=== PATIENT | male | born 1960 | race Caucasian/White ===

== ENCOUNTER 2023-05-05 07:57 | Emergency (ER) | payer OTHER, SELFPAY ==
[2023-05-05] VITALS (7 sets, daily range): BP systolic 147–178; BP diastolic 82–101; PULSE 93–108; RESP 18–25; TEMP 36.4; O2SAT 94–99; BMI 30.1
--- NOTE | 2023-05-05 08:36 | RAD_ITS ---
HISTORY: SOB. TECHNIQUE: XR Chest 1 View. COMPARISON: None. FINDINGS: CARDIOMEDIASTINAL BORDERS: Cardiac silhouette within normal limits in size. Mediastinal contour unremarkable. LUNGS: Radiographically clear. PLEURA: No pleural effusion or pneumothorax seen. OSSEOUS STRUCTURES: Unremarkable. RAD/Chest 1 View (Portable) IMPRESSION: No acute cardiopulmonary process identified. Electronically Signed: Charlotte Pack MD at 8:45 EDT ,
--- NOTE | 2023-05-05 09:00 | EKG12_ITS ---
Test Reason : sob Blood Pressure : / mmHG Vent. Rate : 098 BPM Atrial Rate : 098 BPM P-R Int : 152 ms QRS Dur : 074 ms QT Int : 340 ms P-R-T Axes : 069 074 033 degrees QTc Int : 434 ms Normal sinus rhythm Normal ECG Confirmed by MARIUSZ AVENDANO, BILL ([id number]), fashion editor STAR HIGGINS ([id number]) on 05/09/2023 8:03:19 AM Referred By: Confirmed By:BILL VEE MD
--- NOTE | 2023-05-05 09:01 | EDS_ITS ---
HPI History of Present Illness Chief Complaint: Shortness of Breath Narrative Narrative: 63-year-old male presenting with shortness of breath. He states he has been wheezing. He was already seen by his PCP and had a chest x-ray performed several days ago. He has not had any fever or chills. His primary care physician gave him an albuterol inhaler, Tessalon Perles. He states he still having difficulty breathing. He describes dyspnea with exertion and at rest. He states is worse with exertion. He describes orthopnea and states has not been able to sleep at night. Has been send in a chair. States his chest feels tight like somebody is hugging him tightly. Goes all the way around the chest. He feels dizzy and lightheaded when he starts to ambulate. He has not fallen. PFSH PFS Home Medications prednisone 50 mg tablet 50 mg PO DAILY #5 tabs 05/05/23 [Rx Last Taken Unknown] Allergy/AdvReac Type Severity Reaction Status Date / Time No Known Allergies Allergy Verified 05/05/23 08:00 Social History Smoking Status: Never smoker ROS ROS ED Constitutional Constitutional ED: Denies chills, fever(s) or sweats Eyes Eyes: Denies blurry vision or change in vision ENT ENT ED: Denies ear pain or sore throat Cardiovascular Cardiovascular: Reports chest pain and orthopnea; Denies palpitations or racing heartbeat Respiratory/Chest Respiratory/Chest: Reports cough, dyspnea, dyspnea on exertion and orthopnea; Denies sputum Gastrointestinal Gastrointestinal: Denies abdominal pain, constipation, diarrhea, nausea or vomiting Genitourinary Genitourinary ED: Denies dysuria, hematuria or urinary frequency Musculoskeletal Musculoskeletal: Denies arthralgias, myalgias or neck pain Integumentary Denies abscess, Abrasions or rash Neurologic Neurologic: Denies headache(s), paresthesias or weakness Psychiatric Psychiatric: Denies anxiety, depression, suicidal ideation or suicidal thoughts Endocrine Endocrinology: Denies polydipsia or polyuria EXAM Physical Exam Const Vital Signs: 05/05/23 07:58 05/05/23 08:33 05/05/23 09:20 Temperature 97.6 F L Temperature Source Temporal Pulse Rate 95 93 Respiratory Rate 20 H 18 Respiratory Effort Normal Non-Labored Respiratory Depth Normal Respiratory Pattern Normal Normal Blood Pressure 178/101 H Blood Pressure Mean 126 Pulse Ox 99 Oxygen Delivery Method Room Air Room Air 05/05/23 09:00 05/05/23 08:58 05/05/23 09:58 Temperature Temperature Source Pulse Rate Respiratory Rate 18 18 Respiratory Effort Respiratory Depth Respiratory Pattern Blood Pressure Blood Pressure Mean Pulse Ox Oxygen Delivery Method Room Air 05/05/23 10:58 05/05/23 11:58 05/05/23 12:24 Temperature Temperature Source Pulse Rate 106 H 108 H Respiratory Rate 18 25 H 18 Respiratory Effort Respiratory Depth Respiratory Pattern Blood Pressure 147/82 H 147/82 H Blood Pressure Mean 103 103 Pulse Ox 96 94 Oxygen Delivery Method Room Air General Appearance ED: Negative for pallor HEENT Reports normocephalic and head/scalp atraumatic Eyes PERRL and EOMs intact bilaterally Neck no lymphadenopathy and supple Chest Wall inspection of chest normal and palpation of chest normal Resp normal respiratory effort Auscultation: wheezes expiratory wheezes; Negative for rales or rhonchi Cardio regular rate and regular rhythm GI normal to inspection, nondistended, normoactive bowel sounds Narrative: Deferred Extremity normal to inspection General Extremety ED: Negative for edema or tenderness General Extremity: Negative for edema Neuro oriented x3 and CN's II-XII intact bilaterally Sensorium / Orientation: alert Motor Exam: strength 5/5 throughout Psych mental status grossly normal Attitude: No agitated Skin no rashes or lesions noted and no wounds General Skin Exam: Negative for jaundice or pallor MDM MDM MDM Narrative Medical decision making narrative: Presenting with shortness of breath. Differential includes pneumonia, viral syndrome, colitis, CHF, ACS, dehydration, electrolyte abnormalities. CBC was obtained to assess white blood cell count, hemoglobin, platelets. BMP to assess renal function and electrolytes. High-sensitivity troponin and EKG were used to assess ischemia and dysrhythmia. BNP to assess for CHF. Patient is wheezing on exam so he was given Solu-Medrol 125 mg. Subsequently liter normal saline. He was given breathing treatments. On reevaluation he feels much better. He is resting comfortably. His wheezing is improved. Chest x-ray my interpretation is no acute process. COVID and influenza swabs are negative. CBC and BMP within normal limits. High-sensitivity phone is 7. BNP 4.4. EKG shows a normal sinus rhythm at 98 bpm without sign of ischemic change or ectopy on my interpretation. Since patient is feeling better and his work-up is negative I will put him on a burst of prednisone. He has an albuterol inhaler at home. I recommended to use this every 4-6 hours. He is to follow-up with his PCP to assure resolution or return to the ER for new or worsening symptoms. Impression: 1. Acute bronchitis 2. Chest pain 3. Dyspnea Lab Data Attestation: I reviewed the patient's lab results. Labs: Laboratory Results - last 24 hr 05/05/23 09:10 WBC 9.2 RBC 5.95 Hgb 18.5 H* Hct 53.1 MCV 89.2 MCH 31.1 MCHC 34.8 RDW Std Deviation 38.9 RDW Coeff of Maulik 11.9 Plt Count 294 MPV 9.3 Immature Gran % (Auto) 0.400 Neut % (Auto) 60.2 Lymph % (Auto) 22.1 [place] % (Auto) 9.2 Eos % (Auto) 6.4 H Baso % (Auto) 1.7 H Absolute Neuts (auto) 5.5 Absolute Lymphs (auto) 2.02 Nucleated RBC % 0 Sodium 135 L Potassium 4.0 Chloride 103 Carbon Dioxide 27.0 Anion Gap 5 BUN 17 Creatinine 0.84 Estim Creat Clear Calc 91.73 Est GFR (MDRD) Af Amer 118 Est GFR (MDRD) Non-Af 98 BUN/Creatinine Ratio 20.2 H Glucose 171 H Calcium 9.5 Troponin I High Sens 7 B-Natriuretic Peptide 4.4 Radiography Diagnostic Testing: Clinical Impression(s) from Imaging Studies Chest X-Ray 05/05/23 08:36 IMPRESSION: No acute cardiopulmonary process identified. Electronically Signed: Charlotte Pack MD at 8:45 EDT , Discharge Plan Triage Chief Complaint: Shortness of Breath ED Provider: Zack Rodriguez Dx/Rx/DC Orders Instructions: ED Chest Pain, Noncardiac, ED Bronchitis with Wheezing (Adult) Prescriptions: New prednisone 50 mg tablet 50 mg PO DAILY Qty: 5 0RF Primary Care Provider: Markel Paris Referrals: Markel Paris MD [Primary Care Provider] - Disposition Disposition: Home, Self Care Discharge Date/Time: 05/05/23 12:28
[2023-05-05] MEDS: MethylPREDNISolone 125 MG/2 ML Vial IV (09:09)
[2023-05-05] MEDS: Ipratropium/Albuterol Sulfate 3 ML AMPUL.NEB INHALATION (09:19)
[2023-05-05] MEDS: Albuterol 2.5 MG/3 ML VIAL.NEB. INHALATION (09:19)
[2023-05-05 09:23] LABS: Absolute Lymphocyte Count 2.02 X10^3/uL (0.83-4.51); Absolute Neutrophil Count 5.5 X10^3/uL (2.0-7.7); Basophil# 0.16 X10^3/uL; Basophil% 1.7 % (0-1); Eosinophil# 0.59 X10^3/uL; Eosinophils% 6.4 % (0-5); Hematocrit 53.1 % (40-54); Hemoglobin 18.5 g/dL (13.0-16.5); Lymphocyte # 2.02 X10^3/ul (0.83-4.51); Lymphocyte % 22.1 % (19-41); Mean Corp Hgb Conc 34.8 g/dL (32-36); Mean Corpuscular Hgb 31.1 pg (27.0-32.0); Mean Corpuscular Volume 89.2 fL (80-94); Mean Platelet Vol. 9.3 fl (6.2-12.0); Monocyte# 0.84 X10^3/uL; Monocyte% 9.2 % (0-10); NRBC Flagged by Analyzer 0 % (0-5); Neutrophil % 60.2 % (47-70); Platelet Count 294 K/mm3 (150-450); RBC Distribution Width CV 11.9 % (11.6-14.6); RBC Distribution Width SD 38.9 fl (35.1-43.9); Red Blood Count 5.95 M/mm3 (4.6-6.2); White Blood Count 9.2 K/mm3 (4.4-11.0)
[2023-05-05 09:33] LABS: Anion Gap 5 (5-15); BUN 17 mg/dL (7-18); BUN/Creat Ratio 20.2 RATIO (10-20); Calcium,Total 9.5 mg/dL (8.5-10.1); Chloride 103 mmol/L (98-107); Creatinine, Serum 0.84 mg/dL (0.70-1.30); EST Glomerular Filtration Rate 98 mL/min (>60); Est Glom Filt Rate - Afr Amer 118 mL/min (>60); Estimated Creatinine Clearance 91.73 ml/min; Glucose 171 mg/dL (74-106); Sodium Level 135 mmol/L (136-145); Troponin-I HS 7 pg/mL (3.0-78.0)
[2023-05-05 09:48] LABS: BNP,B-Type NATRIURETIC PEPTIDE 4.4 pg/mL (0-100)
[2023-05-05] MEDS: 0.9% Normal Saline (1000mL) 1,000 ML 999 ML IV (09:50)
[2023-05-09 09:46] LABS: Pathologist Review Reviewed
== END 2023-05-05 12:28 | disposition home or self-care (01) ==
PROVIDERS: Emergency Provider Student in an Organized Health Care Education/Training Program; PCP Family Medicine; Visit Provider Student in an Organized Health Care Education/Training Program
DX: J20.9 Acute bronchitis, unspecified (principal); R07.9 Chest pain, unspecified; R06.00 Dyspnea, unspecified
CPT/HCPCS: 71045; 80048; 83880; 84484; 85025; 87428; 93005; 94640; 96374; 99284; J7030; A4216

== ENCOUNTER 2023-05-14 04:50 | Emergency (ER) | payer OTHER, SELFPAY ==
[2023-05-14 04:51] VITALS: BP 136/96; PULSE 100; RESP 28; TEMP 36.1; O2SAT 98; BMI 29.7
--- NOTE | 2023-05-14 05:05 | EDS_ITS ---
HPI History of Present Illness Chief Complaint: Shortness of Breath Informant: patient and spouse/S.O. Narrative Narrative: Patient is a 63-year-old male with past medical history of hypertension and hyperlipidemia. He was seen approximately 1 week ago secondary to shortness of breath and wheeze. At that time he underwent a work-up for COVID and influenza as well as pneumonia and potential CHF or cardiovascular event and this was all negative. He had improvement after breathing treatments and steroids and was discharged home on 5 days of prednisone. He states he was feeling completely better and then beginning yesterday return to some congestion followed by shortness of breath and wheeze that worsened throughout the night. Secondary to the returning symptoms she presents for repeat evaluation. The patient states that he smoked for a few years roughly 50 years ago but has never had a diagnosis of asthma or reactive airway disease or COPD or emphysema. He also denies any new exposures or sick contacts. PFSH PFS Medical History no medical history Home Medications prednisone 50 mg tablet 50 mg PO DAILY #5 tabs 05/05/23 [Rx Last Taken Unknown] albuterol sulfate 90 mcg/actuation aerosol inhaler (Ventolin HFA) 2 puff inhalation Q4H PRN PRN Wheezing/SOB #1 device 05/14/23 [Rx Last Taken Unknown] prednisone 10 mg tablet 10 mg PO DAILY #63 tabs 05/14/23 [Rx Last Taken Unknown] Allergy/AdvReac Type Severity Reaction Status Date / Time No Known Allergies Allergy Verified 05/14/23 04:55 Surgical History no surgical history Social History Smoking Status: Never smoker [facility] ED Constitutional Constitutional ED: Denies chills or fever(s) ENT ENT ED: Reports rhinorrhea; Denies sore throat Cardiovascular Cardiovascular: Denies chest pain Respiratory/Chest Respiratory/Chest: Reports cough and dyspnea Gastrointestinal Gastrointestinal: Denies abdominal pain, diarrhea, nausea or vomiting Genitourinary Genitourinary ED: Denies dysuria Musculoskeletal Musculoskeletal: Denies myalgias Integumentary Denies rash Neurologic Neurologic: Denies headache(s) Hematologic/Lymphatic Hematologic/Lymphatic: Denies easy bleeding or easy bruising EXAM Physical Exam Const Vital Signs: 05/14/23 04:51 05/14/23 05:15 05/14/23 05:49 Temperature 97.0 F L Temperature Source Temporal Pulse Rate 100 107 H 106 H Respiratory Rate 28 H 12 12 Respiratory Pattern Normal Normal Blood Pressure 136/96 H Blood Pressure Mean 109 Pulse Ox 98 Oxygen Delivery Method Room Air 05/14/23 06:08 Temperature Temperature Source Pulse Rate 106 H Respiratory Rate 18 Respiratory Pattern Blood Pressure 112/81 H Blood Pressure Mean 91 Pulse Ox 98 Oxygen Delivery Method Room Air Positive well nourished and well developed General Appearance ED: well developed; Negative for pallor HEENT HEENT Narrative: Cobblestoning is noted in the posterior pharynx consistent with sinus drainage No tongue or lip swelling. No oral lesions no airway edema or compromise Eyes PERRL and EOMs intact bilaterally General Eye ED: Negative for pale conjunctiva Neck supple and no JVD Chest Wall palpation of chest normal Resp Resp Narrative: Patient is in mild respiratory distress with tachypnea. Breath sounds are diminished throughout with diffuse inspiratory and expiratory wheezing. No nasal flaring or retractions noted. No stridor present. Cardio regular rate and regular rhythm Rate: other Other Details: Radial and carotid pulses equal and symmetric Extremity normal to inspection Extremity Narrative: No asymmetric edema no pitting edema negative Homans' sign bilaterally Neuro oriented x3, CN's II-XII intact bilaterally and no sensory deficits noted Sensorium / Orientation: alert Motor Exam: strength 5/5 throughout Psych mental status grossly normal Skin no rashes or lesions noted General Skin Exam: Negative for jaundice or pallor MDM MDM MDM Narrative Medical decision making narrative: Patient presented to the ER hypertensive but does have a past medical history of this. Patient was seen approximately 7 days ago for similar event and at that time her complete work-up including chest x-ray EKG troponin and basic laboratory studies as well as proBNP. Work-up at that time was negative for any type of congestive heart failure or acute coronary syndrome and therefore I felt no need to repeat those testing today. The patient has no history of lung disorder and only remote history of smoking. He does have mild congestion and drainage in the posterior pharynx indicating this most likely is a viral inflammatory process. With concern for pneumonia or pneumothorax or pleural effusion I did elect to perform a repeat chest x-ray. This revealed no clinically significant findings. He was given IV Solu-Medrol as well as 2 DuoNeb and 1 albuterol breathing treatment. Following ministration of the medication his work of breathing resolved and his breath sounds improved. Chart review reveals that the lovastatin patient is on for his hyperlipidemia can cause interstitial lung disease. I discussed with patient potential of a CT scan at this time to further assess the cause of his shortness of breath as he has no known history of asthma or COPD or reactive airway disease. 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 Therefore at this time as the patient's pulse ox is normal his work of breathing resolved and breath sounds improved he will be discharged and can follow-up on an outpatient basis. History & Record Review Discussion w/independent historian: Patient and Significant other Lab Data Attestation: I reviewed the patient's lab results. Labs: Laboratory Results - last 24 hr 05/14/23 04:55 WBC 12.5 H RBC 6.35 H Hgb 19.4 H* Hct 57.0 H MCV 89.8 MCH 30.6 MCHC 34.0 RDW Std Deviation 38.6 RDW Coeff of Maulik 11.9 Plt Count 275 MPV 9.6 Immature Gran % (Auto) 1.300 H Neut % (Auto) 46.5 L Lymph % (Auto) 31.3 [place] % (Auto) 11.4 H Eos % (Auto) 8.1 H Baso % (Auto) 1.4 H Absolute Neuts (auto) 5.8 Absolute Lymphs (auto) 3.91 Nucleated RBC % 0 Diff Path Review May foll Sodium 135 L Potassium 4.5 Chloride 103 Carbon Dioxide 28.0 Anion Gap 4 L BUN 12 Creatinine 0.96 Estim Creat Clear Calc 80.27 Est GFR (MDRD) Af Amer 101 Est GFR (MDRD) Non-Af 84 BUN/Creatinine Ratio 12.5 Glucose 167 H Calcium 9.2 Magnesium 2.6 Radiography Diagnostic Testing: Clinical Impression(s) from Imaging Studies Chest X-Ray 05/14/23 05:29 IMPRESSION: No demonstrated acute cardiopulmonary process. Electronically Signed: Aziza Walker MD at 5:48 EDT , 2 view chest x-ray as interpreted by the emergency medicine physician reveals no acute infiltrate pneumothorax or pleural effusion Discharge Plan Triage Chief Complaint: Shortness of Breath ED Provider: Christiano Mayorga Dx/Rx/DC Orders Clinical Impression: Acute bronchospasm due to viral infection, Hyperlipidemia, Hypertension Instructions: ED Bronchospasm (Adult) Prescriptions: New albuterol sulfate [Ventolin HFA] 90 mcg/actuation HFA aerosol inhaler 2 puff inhalation Q4H PRN PRN (Reason: Wheezing/SOB) Qty: 1 2RF prednisone 10 mg tablet 10 mg PO DAILY Qty: 63 0RF Rx Instructions: 60 mg p.o. daily ?3 days, 50 mg p.o. daily ?3 days, 40 mg p.o. daily ?3 days, 30 mg p.o. daily ?3 days, 20 mg p.o. daily ?3 days, 10 mg p.o. daily ?3 days. No Action prednisone 50 mg tablet 50 mg PO DAILY Qty: 5 0RF Primary Care Provider: Markel Paris Referrals: Richar Fernando DO [Med Staff - Active Staff] - Markel Paris MD [Primary Care Provider] - Activity Restrictions/Additional Instructions: Based on your return of symptoms in a short timeframe please take the prolonged prednisone taper to control any type of inflammatory process. Continue to use your albuterol inhaler as needed. Consider following up with pulmonology for further assessment as far as the cause of your current symptoms and return to the ER should you have any further concerns. Disposition Disposition: Home, Self Care
[2023-05-14] MEDS: Ipratropium/Albuterol Sulfate 3 ML AMPUL.NEB INHALATION ×2 (05:11)
[2023-05-14] MEDS: MethylPREDNISolone 125 MG/2 ML Vial IV (05:11)
[2023-05-14 05:13] LABS: Absolute Lymphocyte Count 3.91 X10^3/uL (0.83-4.51); Absolute Neutrophil Count 5.8 X10^3/uL (2.0-7.7); Basophil# 0.17 X10^3/uL; Basophil% 1.4 % (0-1); Eosinophil# 1.01 X10^3/uL; Eosinophils% 8.1 % (0-5); Lymphocyte # 3.91 X10^3/ul (0.83-4.51); Lymphocyte % 31.3 % (19-41); Mean Corpuscular Hgb 30.6 pg (27.0-32.0); Mean Corpuscular Volume 89.8 fL (80-94); Mean Platelet Vol. 9.6 fl (6.2-12.0); Monocyte# 1.42 X10^3/uL; Monocyte% 11.4 % (0-10); NRBC Flagged by Analyzer 0 % (0-5); Neutrophil # 5.84 X10^3/uL (2.7-7.7); Neutrophil % 46.5 % (47-70); Platelet Count 275 K/mm3 (150-450); RBC Distribution Width CV 11.9 % (11.6-14.6); RBC Distribution Width SD 38.6 fl (35.1-43.9); Red Blood Count 6.35 M/mm3 (4.6-6.2); White Blood Count 12.5 K/mm3 (4.4-11.0)
[2023-05-14 05:15] VITALS: PULSE 107; RESP 12
[2023-05-14 05:18] LABS: Hemoglobin 19.4 g/dL (13.0-16.5)
--- NOTE | 2023-05-14 05:29 | RAD_ITS ---
STUDY: X-RAY CHEST REASON FOR EXAM: Male, 63 years old. Cough TECHNIQUE: PA and lateral views of the chest. COMPARISON: May 05, 2023 chest x-ray FINDINGS: The lungs are clear and expanded. There is no demonstrated pleural abnormality. Normal size heart. Normal mediastinum and hector. Normal visualized pulmonary arteries. Normal visualized aortic arch and descending thoracic aorta. There are diffuse degenerative changes of the visualized thoracic spine. Normal visualized ribs, clavicles, and shoulders. There is no demonstrated abnormality of the visualized soft tissue structures of the upper abdomen. RAD/Chest PA and Lateral IMPRESSION: No demonstrated acute cardiopulmonary process. Electronically Signed: Aziza Walker MD at 5:48 EDT ,
[2023-05-14 05:34] LABS: Anion Gap 4 (5-15); BUN 12 mg/dL (7-18); BUN/Creat Ratio 12.5 RATIO (10-20); Calcium,Total 9.2 mg/dL (8.5-10.1); Chloride 103 mmol/L (98-107); Creatinine, Serum 0.96 mg/dL (0.70-1.30); EST Glomerular Filtration Rate 84 mL/min (>60); Est Glom Filt Rate - Afr Amer 101 mL/min (>60); Estimated Creatinine Clearance 80.27 ml/min; Glucose 167 mg/dL (74-106); Magnesium 2.6 mg/dL (1.6-2.6); Potassium 4.5 mmol/L (3.5-5.1); Sodium Level 135 mmol/L (136-145)
[2023-05-14 05:49] VITALS: PULSE 106; RESP 12
[2023-05-14] MEDS: Albuterol 2.5 MG/3 ML VIAL.NEB. INHALATION (05:49)
[2023-05-14 06:08] VITALS: BP 112/81; PULSE 106; RESP 18; O2SAT 98
[2023-05-14 06:29] VITALS: BP 114/80; PULSE 111; RESP 18; O2SAT 97
[2023-05-16 10:20] LABS: Pathologist Review Reviewed
== END 2023-05-14 06:30 | disposition home or self-care (01) ==
PROVIDERS: Emergency Provider Emergency Medicine; PCP Family Medicine; Visit Provider Emergency Medicine
DX: J98.01 Acute bronchospasm (principal); B34.9 Viral infection, unspecified; E78.5 Hyperlipidemia, unspecified; I10 Essential (primary) hypertension; Z87.891 Personal history of nicotine dependence
CPT/HCPCS: 71046; 80048; 83735; 85025; 94640; 96374; 99283; A4216

== ENCOUNTER 2023-06-26 01:04 | Emergency (ER) | payer OTHER, SELFPAY ==
[2023-06-26 01:05] VITALS: BP 155/85; PULSE 89; RESP 28; TEMP 36.5; O2SAT 99
--- NOTE | 2023-06-26 01:28 | ED.VIS.DYS ---
HPI History of Present Illness Chief Complaint: Shortness of Breath Informant: patient and spouse/S.O. Narrative Narrative: 63-year-old male presenting to the emergency room with dyspnea. states that he was seen twice in April for shortness of breath. He saw a nurse practitioner through primary care. states that whenever he is on prednisone he seems to be doing good but whenever he comes off of prednisone he starts having difficulty breathing. He states that sometimes he coughs sometimes he does not sometimes is productive and sometimes its not. He tried to nebulized albuterol's at home with no relief. He has not seen pulmonology or had pulmonary function testing. He denies any pain. No palpitations. He states tonight his breathing was worse than it was earlier in the day. No fevers. Patient is rather irritated/upset by everything including the IV catheter the fact that he has had 2 chest x-rays and the fact that he is in the emergency department. His answers are very short and the tone clearly displays his emotional fatigue of the situation. He denies any smoking history. He denies any exposure to chemicals. No history of asthma. PFSH PFSH Home Medications albuterol sulfate 2.5 mg/3 mL (0.083 %) solution for nebulization 2.5 mg (3 mL) inhalation Q4H PRN #25 vials 06/26/23 [Rx Last Taken Unknown] albuterol sulfate 90 mcg/actuation aerosol inhaler (Ventolin HFA) 2 puff inhalation Q4H PRN PRN Wheezing ##1 06/26/23 [Rx Last Taken Unknown] prednisone 20 mg tablet See Rx Instructions .Route .COMPLEX #24 TABLETS 06/26/23 [Rx Last Taken Unknown] Allergy/AdvReac Type Severity Reaction Status Date / Time No Known Allergies Allergy Verified 06/26/23 01:05 Social History Smoking Status: Never smoker ROS ROS ED Constitutional Constitutional ED: Denies chills, fever(s) or weight loss Eyes Eyes: Denies change in vision or diplopia ENT ENT ED: Denies ear pain, rhinorrhea or sore throat Cardiovascular Cardiovascular: Denies chest pain, orthopnea, palpitations or racing heartbeat Respiratory/Chest Respiratory/Chest: Reports cough, dyspnea and dyspnea on exertion; Denies orthopnea Gastrointestinal Gastrointestinal: Denies abdominal pain, diarrhea, nausea or vomiting Genitourinary Genitourinary ED: Denies dysuria, hematuria or urinary frequency Musculoskeletal Musculoskeletal: Denies arthralgias or myalgias Integumentary Denies abscess or rash Neurologic Neurologic: Denies headache(s) or weakness Psychiatric Psychiatric: Denies anxiety, depression, suicidal ideation or suicidal thoughts Endocrine Endocrinology: Denies polydipsia, polyphagia or polyuria Allergic/Immunologic Allergic/Immunologic ED: Denies mouth swelling, tongue swelling or urticaria EXAM Physical Exam Const Vital Signs: 06/26/23 01:05 06/26/23 01:29 Temperature 97.7 F L Temperature Source Temporal Pulse Rate 89 102 H Respiratory Rate 28 H 18 Respiratory Pattern Normal Blood Pressure 155/85 H Blood Pressure Mean 108 Pulse Ox 99 Oxygen Delivery Method Room Air Positive well nourished and well developed General Appearance ED: well developed HEENT Reports normocephalic, head/scalp atraumatic and moist mucous membranes Eyes PERRL and EOMs intact bilaterally Neck no lymphadenopathy, supple and no JVD Resp Auscultation: wheezes expiratory wheezes, inspiratory wheezes and throughout and diminished lung sounds Cardio regular rate, regular rhythm and no murmurs GI non-tender and non-distended Auscultation: normoactive bowel sounds Palpation: soft Back/Spine no CVA tenderness and normal ROM Extremity normal to inspection General Extremety ED: Negative for edema General Extremity: Negative for edema Neuro oriented x3 and CN's II-XII intact bilaterally Sensorium / Orientation: alert Motor Exam: strength 5/5 throughout Psych mental status grossly normal Mood & Affect: Negative for depressed or tearful Skin no rashes or lesions noted and no wounds MDM MDM MDM Narrative Medical decision making narrative: I reviewed the previous ED encounters and x-rays. Patient received 2 DuoNebs and methylprednisolone. Patient has been very difficult to work with. Any attempt to explain the differential and possible reasons why he may have asked why or is he disease is met with resistance. Initially does not understand why he would need to see a director financial services. I explained to him he needs PFTs and possibly bronchoscopy. I do not have much to offer him other than some additional steroids and albuterol. I explained to him once he has a better diagnosis inhaled corticosteroids or long-acting beta agonist may be indicated. The patient states what the hell was this for and shows me his IV. I informed him he received a dose of IV Solu-Medrol. He states nobody hooked anything up to it. I informed him that it was an IVP med. He states he never saw anybody give him anything. The patient's lung sounds are improved. I do not think I can make this patient happy tonight. He is in no acute distress. His breathing is improved. I feel that he is stable for discharge. Discharge Plan Triage Chief Complaint: Shortness of Breath ED Provider: Nic Ewing Dx/Rx/DC Orders Clinical Impression: Acute dyspnea, Acute bronchospasm Instructions: ED Bronchospasm (Adult) Prescriptions: New albuterol sulfate 2.5 mg /3 mL (0.083 %) solution for nebulization 2.5 mg inhalation Q4H PRN Qty: 25 0RF Rx Instructions: Use q4 hours and PRN for wheezing albuterol sulfate [Ventolin HFA] 90 mcg/actuation HFA aerosol inhaler 2 puff inhalation Q4H PRN PRN (Reason: Wheezing) Qty: 1 0RF Rx Instructions: with spacer prednisone 20 mg tablet See Rx Instructions .ROUTE .COMPLEX Qty: 24 0RF Rx Instructions: 3 tabs p.o. daily x4 days, then 2 tabs p.o. daily x4 days, then 1 tab p.o. daily x4 days Primary Care Provider: Markel Paris Referrals: Richar Fernando DO [Med Staff - Active Staff] - As soon as possible Markel Paris MD [Primary Care Provider] - Disposition Disposition: Home, Self Care
[2023-06-26 01:29] VITALS: PULSE 102; RESP 18
[2023-06-26] MEDS: Ipratropium/Albuterol Sulfate 3 ML AMPUL.NEB INHALATION (01:29)
[2023-06-26] MEDS: MethylPREDNISolone 125 MG/2 ML Vial IV (01:41)
[2023-06-26 01:43] VITALS: BMI 30.1
[2023-06-26 03:12] VITALS: BP 128/92; PULSE 89; RESP 18; O2SAT 98
== END 2023-06-26 03:13 | disposition home or self-care (01) ==
PROVIDERS: Emergency Provider Emergency Medicine; PCP Family Medicine; Visit Provider Emergency Medicine
DX: R06.00 Dyspnea, unspecified (principal); J98.01 Acute bronchospasm
CPT/HCPCS: 94640; 96374; 99283; A4216

== ENCOUNTER 2023-07-18 19:17 | Emergency (ER) | payer OTHER, SELFPAY ==
[2023-07-18 19:18] VITALS: BP 188/111; PULSE 115; RESP 32; TEMP 36.6; O2SAT 97
[2023-07-18 19:35] VITALS: PULSE 117; RESP 30
[2023-07-18] MEDS: Ipratropium/Albuterol Sulfate 3 ML AMPUL.NEB INHALATION ×2 (19:35→20:15)
--- NOTE | 2023-07-18 19:46 | EKG12_ITS ---
Test Reason : DYSRHYTHMIA Blood Pressure : / mmHG Vent. Rate : 114 BPM Atrial Rate : 114 BPM P-R Int : 140 ms QRS Dur : 068 ms QT Int : 312 ms P-R-T Axes : 072 081 058 degrees QTc Int : 430 ms Sinus tachycardia Possible Left atrial enlargement Borderline ECG Confirmed by MARIUSZ AVENDANO, BILL ([id number]), script editor KELLIE GARCIA ([id number]) on 07/25/2023 8:20:55 AM Referred By: Confirmed By:BILL VEE MD
--- NOTE | 2023-07-18 20:01 | ED.VIS.DYS ---
HPI History of Present Illness Chief Complaint: Shortness of Breath Informant: patient Onset/Context/Timing Onset: Today and Month(s) Context: gradual Timing: Intermittent Quality: Positive for Wheezing Current Severity: Moderate Maximum Severity: Moderate Worsened by: Nothing Relieved by: Albuterol Associated Symptoms cough; Negative for fever or clear sputum Chest Pain: Positive for None Narrative Narrative: 63-year-old male who has had intermittent shortness of breath with wheezing since May 01. He has been seen the emergency department 3 times. He has a scheduled upcoming appointment with the [facility] he believes the autopsy pathologist. He had an episode today where he was short of breath with wheezing and came in to be evaluated. No chest pain. No fever. PE Risk Factors: Negative for Cancer, OCP + Smoking + > 35, Prior DVT or PE, Recent immobilization, Recent surgery or Recent travel Prior similar symptoms: Yes Recent Illness/Hospitalization: No PFSH PFSH Home Medications albuterol sulfate 2.5 mg/3 mL (0.083 %) solution for nebulization 2.5 mg (3 mL) inhalation Q4H PRN #25 vials 06/26/23 [Rx Last Taken Unknown] albuterol sulfate 90 mcg/actuation aerosol inhaler (Ventolin HFA) 2 puff inhalation Q4H PRN PRN Wheezing ##1 06/26/23 [Rx Last Taken Unknown] prednisone 20 mg tablet See Rx Instructions .Route .COMPLEX #24 TABLETS 06/26/23 [Rx Last Taken Unknown] albuterol sulfate 90 mcg/actuation aerosol inhaler (Proventil HFA) 2 puff inhalation Q6H PRN shortness of breath or wheezing #8.5 grams 07/18/23 [Rx Last Taken Unknown] Allergy/AdvReac Type Severity Reaction Status Date / Time No Known Allergies Allergy Verified 07/18/23 19:18 Social History Smoking Status: Never smoker ROS ROS ED ROS Narrative Short of breath. Wheezing. Review of Systems ROS Unobtainable: Denies due to encephalopathy Constitutional Constitutional ED: Denies chills or fever(s) Eyes Eyes: Denies blurry vision ENT ENT ED: Denies ear pain Cardiovascular Cardiovascular: Denies chest pain Respiratory/Chest Respiratory/Chest: Reports dyspnea; Denies cough Gastrointestinal Gastrointestinal: Denies abdominal pain, diarrhea, nausea or vomiting Genitourinary Genitourinary ED: Denies dysuria or hematuria Musculoskeletal Musculoskeletal: Denies arthralgias Integumentary Denies abscess Neurologic Neurologic: Denies headache(s) Psychiatric Psychiatric: Denies anxiety or depression Endocrine Endocrinology: Denies cold intolerance Hematologic/Lymphatic Hematologic/Lymphatic: Denies easy bleeding Allergic/Immunologic Allergic/Immunologic ED: Denies mouth swelling or tongue swelling EXAM Physical Exam Narrative Exam Narrative: 63-year-old male vital signs stable. Afebrile. Patient is tachypneic. And patient is tachycardic., I was called to triage was having difficulty breathing with prolonged expiratory phase and wheezing. Patient denies any vomiting. H EENT exam unremarkable. Neck nontender no JVD. No lymphadenopathy. Lungs expiratory wheezing throughout. Prolonged expiratory phase. Decreased air movement. Heart tachycardic 115 no murmur. Chest wall and ribs nontender. Abdomen soft nontender. Moving all 4 extremities. Calves are nontender without edema or cords. Neurologically is awake alert no focal motor deficits. Const Vital Signs: 07/18/23 19:18 07/18/23 19:35 07/18/23 20:14 Temperature 98 F Temperature Source Temporal Pulse Rate 115 H 117 H Respiratory Rate 32 H 30 H Respiratory Effort Respiratory Pattern Tachypnea Blood Pressure 188/111 H Blood Pressure Mean 136 Pulse Ox 97 Oxygen Delivery Method Room Air 07/18/23 20:18 Temperature Temperature Source Pulse Rate Respiratory Rate Respiratory Effort Short of Breath Respiratory Pattern Normal Blood Pressure Blood Pressure Mean Pulse Ox Oxygen Delivery Method Room Air Positive well nourished and well developed; Negative for cachectic, contractures or unkempt General Appearance ED: well developed and NAD; Negative for unkempt, cachectic, contractures or pallor Nutritional Appearance: Negative for cachectic HEENT Reports moist mucous membranes; Denies dry mucous membranes atraumatic; Negative for trauma or tenderness Mouth ED: No dry mucous membranes Mouth: No dry mucous membranes Eyes PERRL and EOMs intact bilaterally General Eye ED: Negative for pale conjunctiva, scleral icterus or other Neck no lymphadenopathy, supple, no meningeal signs and no JVD General: Negative for tenderness Lymph Lymphatic: Negative for other Chest Wall Chest: Negative for other Resp No normal respiratory effort and No clear to auscultation bilaterally Resp Narrative: Decreased air movement. Expiratory wheezing. Equal symmetrical. Long expiratory phase. Auscultation: wheezes and diminished lung sounds; Negative for rales or rhonchi Cardio regular rhythm, S1 normal heart sound, S2 normal heart sound and no murmurs; Negative for regular rate Rate: tachycardic GI non-tender, non-distended and no masses Inspection: Negative for other Auscultation: normoactive bowel sounds Palpation: soft; Negative for tender, guarding or rebound tenderness present Back/Spine no CVA tenderness and normal to inspection General Back: Negative for CVA tenderness Extremity normal to inspection General Extremety ED: Negative for edema or tenderness General Extremity: Negative for edema Neuro oriented x3 and CN's II-XII intact bilaterally Sensorium / Orientation: alert, oriented to person, oriented to place and oriented to time; Negative for orientation impaired, confused or lethargic Speech: speech normal Motor Exam: strength 5/5 throughout Psych mental status grossly normal Appearance: Negative for unkempt Attitude: No agitated Mood & Affect: Negative for depressed, anxious or tearful Thought Process: normal thought process Skin no wounds General Skin Exam: Negative for jaundice or pallor Lesions: no lesions Rashes: no rashes Trauma: Negative for abrasion or laceration MDM MDM MDM Narrative Medical decision making narrative: 63-year-old male with shortness of breath and wheezing. Suspect secondary to bronchospasm. He does have a history of smoking in the past but quit this could be underlying COPD. Rule out pneumonia versus other etiologies. I do not believe this will be cardiac in nature. Patient is receiving IV Solu-Medrol and aerosols both DuoNeb and albuterol. Repeat exam patient is doing quite well at 10:10 PM. Wheezing is resolved. He is breathing much better. He has much better air exchange and lung volume. He is comfortable being discharged home. He already has a prescription of steroids from the [facility]. He has a nebulizer at home with albuterol. I will write him for a new inhaler. He has an appointment to follow-up with [facility] autopsy pathologist in a little over 2 weeks. History & Record Review Discussion w/independent historian: Patient Additional record(s) reviewed:: Prior inpatient record, Prior outpatient record, Prior ED visit and Prior labs Lab Data Attestation: I reviewed the patient's lab results. Lab results narrative: CBC shows a white count 12.6. H&H of 18 and 55. Platelet count of 312. Consistent with prior labs. Electrolytes show a gap of 6 normal BUN of 15 creatinine 1. Glucose 214. Troponin normal 5. Labs: Laboratory Results - last 24 hr 07/18/23 19:30 WBC 12.6 H RBC 6.13 Hgb 18.3 H* Hct 55.8 H MCV 91.0 MCH 29.9 MCHC 32.8 RDW Std Deviation 41.8 RDW Coeff of Maulik 12.4 Plt Count 312 MPV 9.9 Immature Gran % (Auto) 1.100 H Neut % (Auto) 51.4 Lymph % (Auto) 28.9 [place] % (Auto) 11.3 H Eos % (Auto) 5.2 H Baso % (Auto) 2.1 H Absolute Neuts (auto) 6.5 Absolute Lymphs (auto) 3.64 Nucleated RBC % 0 Sodium 137 Potassium 3.9 Chloride 102 Carbon Dioxide 29.0 Anion Gap 6 BUN 15 Creatinine 1.02 Est GFR (MDRD) Af Amer 95 Est GFR (MDRD) Non-Af 78 BUN/Creatinine Ratio 14.7 Glucose 214 H Calcium 10.0 Troponin I High Sens 5 Radiography Chest X-Ray - ED: 1 View and Read by ED Physician Diagnostic Testing: Patient refused chest x-ray today. I did review his prior chest x-rays from May 14 and and those were unremarkable. Rhythm Strip Rhythm Strip: Sinus Tach Rate: 114 Ectopy: None EKG Initial EKG: Attestation: I personally reviewed and interpreted this EKG as follows: Interpretation: No Acute Injury Pattern and Sinus Tachycardia Comments: Sinus tachycardia 114. No acute signs of [place] nor ischemia. No [id number]. Discharge Plan Triage Chief Complaint: Shortness of Breath ED Provider: Addison Galicia Dx/Rx/DC Orders Clinical Impression: Bilateral wheezing, Acute dyspnea Instructions: ED Dyspnea Prescriptions: New albuterol sulfate [Proventil HFA] 90 mcg/actuation HFA aerosol inhaler 2 puff inhalation Q6H PRN (Reason: shortness of breath or wheezing) Qty: 8.5 1RF Rx Instructions: 2 puffs every 2-4 hours as needed for shortness of breath and wheezing. No Action albuterol sulfate 2.5 mg /3 mL (0.083 %) solution for nebulization 2.5 mg inhalation Q4H PRN Qty: 25 0RF Rx Instructions: Use q4 hours and PRN for wheezing albuterol sulfate [Ventolin HFA] 90 mcg/actuation HFA aerosol inhaler 2 puff inhalation Q4H PRN PRN (Reason: Wheezing) Qty: 1 0RF Rx Instructions: with spacer prednisone 20 mg tablet See Rx Instructions .ROUTE .COMPLEX Qty: 24 0RF Rx Instructions: 3 tabs p.o. daily x4 days, then 2 tabs p.o. daily x4 days, then 1 tab p.o. daily x4 days Primary Care Provider: Markel Paris Referrals: Markel Paris MD [Primary Care Provider] - As Needed Activity Restrictions/Additional Instructions: Your steroids as prescribed by the [facility]. Use your inhaler and nebulizer as needed. Keep and follow-up with your pulmonology appointment in 2 to 3 weeks. Return if feeling a lot worse. Disposition Disposition: Home, Self Care
[2023-07-18 20:08] LABS: Absolute Lymphocyte Count 3.64 X10^3/uL (0.83-4.51); Absolute Neutrophil Count 6.5 X10^3/uL (2.0-7.7); Basophil# 0.26 X10^3/uL; Basophil% 2.1 % (0-1); Eosinophil# 0.65 X10^3/uL; Eosinophils% 5.2 % (0-5); Lymphocyte # 3.64 X10^3/ul (0.83-4.51); Lymphocyte % 28.9 % (19-41); Mean Corp Hgb Conc 32.8 g/dL (32-36); Mean Corpuscular Hgb 29.9 pg (27.0-32.0); Mean Platelet Vol. 9.9 fl (6.2-12.0); Monocyte# 1.42 X10^3/uL; Monocyte% 11.3 % (0-10); NRBC Flagged by Analyzer 0 % (0-5); Neutrophil # 6.49 X10^3/uL (2.7-7.7); Neutrophil % 51.4 % (47-70); Platelet Count 312 K/mm3 (150-450); RBC Distribution Width CV 12.4 % (11.6-14.6); RBC Distribution Width SD 41.8 fl (35.1-43.9); Red Blood Count 6.13 M/mm3 (4.6-6.2); White Blood Count 12.6 K/mm3 (4.4-11.0)
[2023-07-18 20:10] LABS: Hematocrit 55.8 % (40-54)
[2023-07-18 20:11] LABS: Hemoglobin 18.3 g/dL (13.0-16.5)
[2023-07-18] MEDS: MethylPREDNISolone 125 MG/2 ML Vial IV (20:15)
[2023-07-18] MEDS: Albuterol 2.5 MG/3 ML VIAL.NEB. INHALATION ×2 (20:15→20:23)
[2023-07-18 20:21] LABS: Anion Gap 6 (5-15); BUN 15 mg/dL (7-18); BUN/Creat Ratio 14.7 RATIO (10-20); Chloride 102 mmol/L (98-107); Creatinine, Serum 1.02 mg/dL (0.70-1.30); EST Glomerular Filtration Rate 78 mL/min (>60); Est Glom Filt Rate - Afr Amer 95 mL/min (>60); Glucose 214 mg/dL (74-106); Potassium 3.9 mmol/L (3.5-5.1); Sodium Level 137 mmol/L (136-145); Troponin-I HS 5 pg/mL (3.0-78.0)
[2023-07-18 22:14] VITALS: PULSE 115; RESP 18; O2SAT 93
--- NOTE | 2023-07-18 22:22 | CPS ---
[2015] x1 Duoneb & x2 total Albuterol given to pt. in ER as well. Pre-BX=012, RR=22 with scattered wheezes. Post-KZ=277, RR=16 with clearer breath sounds.
--- OUTSIDE RECORDS SUMMARY | 2023-07-19 21:25 | XMS RPT_ITS | CCD ---
Author Name Unknown Address [address] [place] [address] Organization [facility] Care Team Providers Care [employer] Name Role Phone Divya Lima MD Primary Care Provider DIVYA LIMA Primary Care Unavailable DIVYA LIMA Referring Unavailable DIVYA LIMA Attending Unavailable DIVYA LIMA Primary Care Unavailable DIVYA LIMA Primary Care Unavailable DIVYA LIMA Referring Unavailable ELICEO STAFFORD Attending Unavailable DIVYA LIMA Primary Care Unavailable ANURADHA SCOTT Referring Unavailab DIVYA Roland Primary Care Unavailable ANURADHA SCOTT Attending Unavailab DIVYA Roland Primary Care Unavailable DIVYA LIMA Primary Care Unavailable REY DIXON Attending Unavailable Medications Current Medications Medication Drug Class(es) Dates Sig (Normalized) Sig (Original) benzonatate 100 mg oral capsule (3 sources) Non-narcotic Antitussive Start: 05-01-2023 End: 05-11-2023 take 1 capsule by mouth three times daily as needed benzonatate (TESSALON PERLE) 100 mg capsule Indications: Bronchitis , Viral URI with cough Take 1 capsule by mouth three times a day as needed for up to 10 days. 30 capsule 0 05/01/2023 05/11/2023 Active Completed/Discontinued Medications Medication Drug Class(es) Dates Sig (Normalized) Sig (Original) albuterol 0.83 mg/ml inhalation solution (7 sources) beta2-Adrenergic Agonist Start: 06-12-2023 take 2.5 mg by inhalation every six hours as needed for dyspnea and wheezing and dyspnea and wheezing albuterol (PROVENTIL) 2.5 mg /3 mL (0.083 %) nebulizer solution Indications: SOB (shortness of breath) , Wheezing Use 3 mL via nebulizer every 6 hours as needed for wheezing/shortnes s of breath. Use over 5-15minutes. 360 mL 0 06/12/2023 Active Problems Active Problems Problem Classification Problem Date Documented Da te Episodic/Chronic Chronic obstructive pulmonary disease and bronchiectasis (2 sources) Bronchitis; Translations: [Bronchitis, not specified as acute or chronic] Onset: 05-01-2023 05-01-2023 Episodic Diabetes mellitus without complication (17 sources) Type 2 diabetes mellitus without complication; Translations: [Type 2 diabetes mellitus without complications] Onset: 10-09-2014 Chronic Disorders of lipid metabolism (16 sources) Mixed hyperlipidemia; Translations: [Mixed hyperlipidemia] Onset: 09-29-2009 Chronic Essential hypertension (5 sources) Hypertensive disorder; Translations: [Essential (primary) hypertension] Onset: 04-15-2023 Chronic Immunizations and screening for infectious disease (1 source) Suspected disease caused by 2019-nCoV; Translations: [Suspected COVID-19 virus infection] 05-01-2023 Episodic Other lower respiratory disease (1 source) Dyspnea; Translations: [Shortness of breath] 06-12-2023 Episodic Other lower respiratory disease (1 source) Wheezing; Translations: [Wheezing] 06-12-2023 Episodic Other lower respiratory disease (1 source) Shortness of breath; Translations: [SOB (shortness of breath)] Onset: 06-12-2023 Episodic Other lower respiratory disease (1 source) Wheezing; Translations: [Wheezing] Onset: 06-12-2023 Episodic Other nervous system disorders (1 source) Numbness of hand; Translations: [Anesthesia of skin] Episodic Other screening for suspected conditions (not mental disorders or infectious disease) (2 sources) Patient encounter status; Translations: [Encounter for screening for malignant neoplasm of colon] Episodic Other upper respiratory disease (1 source) Seasonal allergic rhinitis; Translations: [Other seasonal allergic rhinitis] 04-26-2023 Chronic Other upper respiratory infections (2 sources) Viral upper respiratory tract infection; Translations: [Acute upper respiratory infection, unspecified] Onset: 05-01-2023 05-01-2023 Episodic Unclassified (1 source) Suspected COVID-19 virus infection; Translations: [Suspected COVID-19 virus infection] Onset: 05-01-2023 Past or Other Problems Problem Classification Problem Date Documented Da te Episodic/Chronic Other skin disorders (11 sources) Foot callus; Translations: [Corns and callosities] Onset: 05-12-2018 05-12-2018 Episodic Results Test Name Value Interpretation Reference Range Facil ity Vital Signs Date Time Vital Sign Value Performing Clinician Merced pacheco 06-12-2023 12:22-0500 Body weight 89.54 kg Eliceo Podlogar [employer]CTOR P[employer] SYMBOL STAMPER.DE ALCHOLIZER Work Phone: [facility] 06-12-2023 12:22-0500 Diastolic blood pressure 68 mm[Hg] Eliceo Podlogar [employer]ICOND[employer]CTOR P[employer]AGE SYMBOL STAMPER.DE ALCHOLIZER Work Phone: [facility] 06-12-2023 12:22-0500 Heart rate 107 /min Eliceo Podlogar [employer]IC[employer]CTOR P[employer]AGE SYMBOL STAMPER.DE ALCHOLIZER Work Phone: [facility] 06-12-2023 12:22-0500 SaO2% (BldA) [Mass fraction] 95 % Eliceo Podlogar [employer]IC[employer]CTOR P[employer] SYMBOL STAMPER.DE ALCHOLIZER Work Phone: [facility] 06-12-2023 12:22-0500 Systolic blood pressure 122 mm[Hg] Eliceo Podlogar [employer]CTOR P[employer] SYMBOL STAMPER.DE ALCHOLIZER Work Phone: [facility] 05-01-2023 15:43-0400 Body temperature 97.11 [degF] Anuradha Scott MD Work Phone: [facility] 05-01-2023 15:43-0400 Body weight 95.44 kg Anuradha Scott MD Work Phone: [facility] 05-01-2023 15:43-0400 Diastolic blood pressure 78 mm[Hg] Anuradha Scott MD Work Phone: [facility] 05-01-2023 15:43-0400 Heart rate 90 /min Anuradha Scott MD Work Phone: [facility] 05-01-2023 15:43-0400 SaO2% (BldA) [Mass fraction] 95 % Anuradha Scott MD Work Phone: [facility] 05-01-2023 15:43-0400 Systolic blood pressure 116 mm[Hg] Anuradha Scott MD Work Phone: [facility] 04-26-2023 06:58-0400 Body weight 96.16 kg Rey Bajwahof SEMICONDUCTOR PACKAGE SYMBOL STAMPER.DE ALCHOLIZER Work Phone: [facility] 04-26-2023 06:58-0400 Diastolic blood pressure 70 mm[Hg] Rey Tannhof SEMICOND[employer]CTOR PACKAGE SYMBOL STAMPER.DE ALCHOLIZER Work Phone: [facility] 04-26-2023 06:58-0400 Heart rate 61 /min Rey Tannhof SEMICONDUCTOR PACKAGE SYMBOL STAMPER.DE ALCHOLIZER Work Phone: [facility] 04-26-2023 06:58-0400 Respiratory rate 16 /min Rey Tannhof SEMICONDUCTOR PACKAGE SYMBOL STAMPER.DE ALCHOLIZER Work Phone: [facility] 04-26-2023 06:58-0400 SaO2% (BldA) [Mass fraction] 96 % Rey Tannhof SEMICONDUCTOR PACKAGE SYMBOL STAMPER.DE ALCHOLIZER Work Phone: [facility] 04-26-2023 06:58-0400 Systolic blood pressure 112 mm[Hg] Rey Tannhof SEMICONDUCTOR P[employer]AGE SYMBOL STAMPER.DE ALCHOLIZER Work Phone: [facility] 10-17-2022 18:32-0400 Body weight 95.53 kg Divya Lima MD Work Phone: [facility] 10-17-2022 18:32-0400 Diastolic blood pressure 74 mm[Hg] Divya Lima MD Work Phone: [facility] 10-17-2022 18:32-0400 Heart rate 80 /min Divya Lima MD Work Phone: [facility] 10-17-2022 18:32-0400 Respiratory rate 16 /min Divya Lima MD Work Phone: [facility] 10-17-2022 18:32-0400 Systolic blood pressure 122 mm[Hg] Divya Lima MD Work Phone: [facility] 04-20-2022 18:42-0400 Diastolic blood pressure 86 mm[Hg] Divya Lima MD Work Phone: [facility] 04-20-2022 18:42-0400 Systolic blood pressure 142 mm[Hg] Divya Lima MD Work Phone: [facility] 04-20-2022 18:40-0400 Body weight 97.89 kg Divya Lima MD Work Phone: [facility] 04-20-2022 18:40-0400 Heart rate 84 /min Divya Lima MD Work Phone: [facility] 04-20-2022 18:40-0400 Respiratory rate 16 /min Divya Lima MD Work Phone: [facility] 10-13-2021 18:41-0400 Diastolic blood pressure 78 mm[Hg] Divya Lima MD Work Phone: [facility] 10-13-2021 18:41-0400 Systolic blood pressure 142 mm[Hg] Divya Lima MD Work Phone: [facility] 10-13-2021 18:38-0400 Body weight 99.88 kg Divya Lima MD Work Phone: [facility] 10-13-2021 18:38-0400 Heart rate 82 /min Divya Lima MD Work Phone: [facility] 10-13-2021 18:38-0400 Respiratory rate 16 /min Divya Lima MD Work Phone: [facility] Encounters Encounter Date Encounter Type Care Provider Facility Start: 07-12-2023 Telephone encounter Divya sibley MD Work Phone: [facility] Procedures Date Procedure Procedure Detail Performing Clinician Start: 05-01-2023 COVID & INFLUENZA A/ B & RSV NAAT, ROUTINE Anuradha Scott MD Work Phone: Start: 05-01-2023 Iadna respiratry pro be & rev trnscr 3-5 targets Anuradha Scott MD Work Phone: Start: 05-01-2023 Sars-cov-2 detection by dna/rna Anuradha Scott MD Work Phone: Start: 10-13-2021 Adult depression screening assessment Divya Lima MD Work Phone: Plan of Treatment Date Care Activity Detail Author Start: 11-07-2026 Urine microalbumin profile [facility] Start: 10-13-2026 PROSTATE CANCER SCREENING DISCUSSION PROSTATE CANCER SCREENING DISCUSSION [facility] Start: 10-13-2026 Prostate specific antigen measurement Prostate Cancer Screening Discussion [facility] Start: 06-12-2024 Annual PCP Team Chronic Disease Visit Annual PCP Team Chronic Disease Visit [facility] Start: 06-12-2024 BP Controlled (<130/80) BP Controlled (<130/80) [facility] Start: 05-01-2024 Annual PCP Team Chronic Disease Visit Annual PCP Team Chronic Disease Visit [facility] Start: 05-01-2024 BP Controlled (<130/80) BP Controlled (<130/80) [facility] Start: 04-26-2024 Annual PCP Team Chronic Disease Visit Annual PCP Team Chronic Disease Visit [facility] Start: 04-26-2024 BP Controlled (<130/80) BP Controlled (<130/80) [facility] Start: 04-15-2024 Hepatitis B surface antibody level LDL Cholesterol [facility] Start: 02-12-2024 Glaucoma screening Dilated Retinal Exam [facility] Start: 02-12-2024 Hepatitis C antibody, confirmatory test Dilated Retinal Exam [facility] Start: 10-26-2023 End: 12-26-2023 Comprehensive metabolic 2000 panel - Serum or Plasma COMP METABOLIC PANEL Lab Routine Type 2 diabetes mellitus without complication, without long-term current use of insulin (HCC) Expected: 10/26/2023, Expires: 12/26/2023 [facility] Work Phone: Immunizations Immunization Date Immunization Notes Care Provider Fa luc 04-15-2023 COVID-19 vaccine, ag e 12+ yr, 2022- season (PFIZER-BIONTFluorofinder) Rey Dixon APRN.DE ALCHOLIZER Work Phone: [facility] 04-15-2023 influenza (aIIV4) vaccine, age 65+ yr, quadrivalent, PF (FLUAD QUAD) Rey Dixon APRN.AZUL Work Phone: [facility] 04-15-2023 respiratory syncytia l virus (RSV) vaccine, adjuvanted (AREXVY) Rey Dixon SEMICONDUCTOR PACKAGE SYMBOL STAMPER.DE ALCHOLIZER Work Phone: [facility] 04-15-2023 zoster vaccine recombinant Rey Dixon APRN.DE ALCHOLIZER Work Phone: [facility] 04-23-2022 COVID-19 booster vaccine, age 12+ yr, bivalent (PFIZER-FriendsuranceNTFluorofinder) Divya Lima MD Work Phone: [facility] 04-23-2022 influenza, seasonal, injectable Divya Lima MD Work Phone: [facility] 04-14-2021 influenza, injectabl e, quadrivalent, contains preservative Divya Lima MD Work Phone: [facility] 04-24-2019 influenza, injectabl e, quadrivalent, contains preservative Divya Lima MD Work Phone: [facility] 11-07-2016 pneumococcal polysaccharide vaccine, 23 valent Divya Lima MD Work Phone: [facility] 11-07-2016 tetanus toxoid, redu tara diphtheria toxoid, and acellular pertussis vaccine, adsorbed Divya Lima MD Work Phone: [facility] Payers Date Payer Category Payer Private Health Insurance AEEMERSON Esparza [facility] [id number] 2023-Present [phone] [address] [place] [address] PPO [id number] 2023 Private Health Insurance [id number] 2021 Unknown [employer] PPO OOS [id number] 2021-Present [phone] [address] [place] [address] PPO [id number] 2021 Unknown [employer] C[employer] PPO OOS [id number] 2021-Present [phone] [address] [place] [address] [facility] [id number] 2021 Unknown [id number] Social History Date Type Detail Facility Start: 09-20-2014 End: 04-20-2022 Tobacco smoking status NHIS Never smoked tobacco [facility] Work Phone: Start: 09-20-2014 End: 04-20-2022 Tobacco use and exposure Smokeless tobacco non-user [facility] Work Phone: Start: 10-13-2021 End: 05-01-2023 Alcohol intake Not Asked [facility] Start: 03-25-2020 History SDOH Alcohol Frequency 1 [facility] Start: 03-25-2020 History SDOH Alcohol Std Drinks 98 [facility] Start: 09-28-2009 History SDOH Alcohol Comment rarely [facility] Start: 03-25-2020 History SDOH Social Connections Phone 2 [facility] Start: 03-25-2020 History SDOH Social Connections Living 3 [facility] Start: 03-25-2020 History SDOH Physical Activity DPW 0 [facility] Start: 03-25-2020 History SDOH Financial 5 [facility] Start: 03-25-2020 Education 17 [facility] Start: 1960 Sex Assigned At Male [facility] Start: 10-03-2021 End: 04-20-2022 Exposure to SARS-CoV-2 (event) Not sure [facility] Start: 03-25-2020 End: 04-26-2023 History of Social function [facility] Start: 03-25-2020 End: 04-26-2023 Social connection and isolation panel [facility] Do you belong to any clubs or organizations such as mandaeism groups, unions, fraternal or athletic groups, or school groups? No [facility] Are you now , , , , never or living with a partner? [facility] How often to you hav e a drink containing alcohol? Never [facility] How many standard dr inks containing alcohol do you have on a typical day? Patient refused [facility] Do you feel stress - tense, restless, nervous, or anxious, or unable to sleep at night because your mind is troubled all the time - these days [OSQ] Not at all [facility] (I/We) worried wheth er (my/our) food would run out before (I/we) got money to buy more. Never true [facility] Start: 03-25-2020 Gender identity Identifies as male gender (finding) [facility] Start: 03-25-2020 Sexual orientation Heterosexual (finding) [facility] Medical Equipment Procedure Code Equipment Code Equipment Origin al Text Equipment Identifier Dates Start: 08-22-2015 Clinical Notes 10-13-2021 to 07-13-2023 Telephone Encounter - Leigh Germain Ma - 07/13/2023 10:53 AM ESTTelephone Encounter - Leigh Germain Ma - 07/12/2023 4:04 PM Eliceo Jean-Baptiste APRN.[facility] - 06/12/2023 12:24 PM EST Note Date & Type Note Facility 07-13-2023 Miscellaneous Notes Formattin g of this note is different from the original. PA approved till 07/18 and patient was notified Faxed approval to [facility] Dear CAMELIA JOSHI: We re pleased to let you know that we ve approved your or your doctor s request for coverage for Trulicity (dulaglutide). You can now fill your prescription, and it will be covered according to your plan. As long as you remain covered by your prescription drug plan and there are no changes to your plan benefits, this request is approved from 07/12/2023 to 07/12/2026. When this approval expires, please speak to your doctor about your treatment. Leigh Germain Ma Prior Authorization has been completed online at Danger for trulicity, will await response. [id number] Please keep encounter open until final decision has been received and documented from insurance company. Leigh Germain MA Suleman is calling Divya Lima MD today with a Medication Problem Patient has been identified by name and birthdate. Patient's insurance is denying his trulicity as they say it is a weight loss drug. He states he has been on it for years for his diabetes. Please review and check for Prior Authorization necessity. Patient would like a call back with status. He says he only has 1 week left Duration of symptoms: N/A Person calling: self Call patient at: at home [phone] (home) [phone] (cell) Was an appointment scheduled: No Closing statement: Kaykay Oviedo documented in this encounter [facility] 06-12-2023 Note HNO ID: [id number] Author: Eliceo Stafford APRN.DE ALCHOLIZER Service: ? Author Type: Nurse Practitioner Type: Progress Notes Filed: 06/12/2023 3:58 PM Note Text: 06/12/2023 Patient presents with: Breathing Problem: X1 month, seen in Apr in office and ER twice since then. SUBJECTIVE: This is a 63 year old that is here today for Above Complaints. Reports he has had SOB and cough intermittently the last month. Was seen once in the office and twice in ER. At first ER visit he had blood work, EKG, CXR and troponin completed and was normal. He has completed three CXRs in all. 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 He has an albuterol inhaler which helps at times. Admits his chest has a feeling of heaviness when he is SOB, Admits SOB is worse with activity. Admits he can have difficulty breathing and orthopnea. He reports he has been given steroids each time and this has improved him each time. Denies fevers, chills, sore throat, itching watery eyes, nasal congestion, rhinorrhea, palpitations or leg edema. Has not smoked in over 45 years ER records reviewed PAST MEDICAL HISTORY Diagnosis Date Mixed hyperlipidemia 09/29/2009 Type 2 diabetes mellitus without complication (HCC) 10/09/2014 ALLERGIES Patient has no known allergies. MEDICATIONS Current Outpatient Medications Medication Sig albuterol HFA (VENTOLIN HFA) 90 mcg/actuation inhaler Inhale 2 Puffs as instructed every 4 hours as needed for wheezing/shortness of breath. metFORMIN (GLUCOPHAGE) 1,000 mg tablet Take 1 tablet by mouth twice daily with meals. . (Patient taking differently: Take 1,000 mg by mouth three times a week. .) lovastatin 40 mg tablet Take 1 tablet by mouth daily at bedtime. For cholesterol. lisinopril (PRINIVIL) 20 mg tablet Take 1 tablet by mouth once daily. dulaglutide (TRULICITY) 1.5 mg/0.5 mL pen injector Inject 1.5 mg subcutaneously one time a week. Inject once per week. Discard Pen After Blood-Glucose Meter (ONETOUCH ULTRA2) monitoring kit 1 Each as needed. One Touch Meter Kit Diagnosis: Type 2 DM - Controlled E11.9 blood sugar diagnostic (ONETOUCH ULTRA TEST) test strip Test blood sugar(s) 1 times daily. Dx: Type 2 DM - Controlled E11.9 Insulin: No Lancets (ONETOUCH ULTRASOFT LANCETS) lancets Test blood sugar(s) 1 times daily. Dx: Type 2 DM - Controlled E11.9 , Insulin: No No current facility-administered medications for this visit. Medications and allergies reviewed by this provider. SOCIAL HISTORY Social History Tobacco Use Smoking status: Never Smokeless tobacco: Never Vaping Use Vaping Use: Never used REVIEW OF SYSTEMS All other reviewed and negative other than HPI. OBJECTIVE: BP 122/68 Pulse 107 Wt 89.5 kg (197 lb 6.4 oz) SpO2 95% BMI 30.01 kg/m? . Vital signs reviewed by this provider. APPEARANCE Well appearing, alert, in no acute distress, well-hydrated, well nourished. EYES conjunctiva and sclera normal. HEART RRR with normal S1 and S2, no murmurs, no gallops, no JVD appreciated LUNG wheezing right, left, posterior lung field. Lung bases CTA. No rhonchi or rales EXTREMITIES Extremities normal, No deformities, No skin discoloration, and No edema SKIN Skin color, texture, turgor normal, no suspicious rashes or lesions to exposed skin Pneumococcal Vaccine(2 - PCV) due on 11/07/2017 Hepatitis B Vaccine(1 of 3 - Risk 3-dose series) Never done Diabetic Foot Exam due on 04/24/2020 Urine Albumin:Creatinine Ratio due on 04/16/2023 Shingrix Vaccine(2 of 2) due on 06/10/2023 Hepatitis C Screening due on 10/18/2023 HIV Screening due on 10/18/2023 HbA1C due on 10/14/2023 Colorectal Cancer Screening due on 10/23/2023 Dilated Retinal Exam due on 02/12/2024 LDL Cholesterol due on 04/15/2024 Annual PCP Team Chronic Disease Visit due on 05/01/2024 BP Controlled (<130/80) due on 05/01/2024 Prostate Cancer Screening Discussion due on 10/13/2026 DTaP,Tdap,Td Vaccine(2 - Td or Tdap) due on 11/07/2026 Influenza Vaccine Completed Depression Assessment Completed RSV Vaccine Completed Covid-19 Vaccine Completed ASSESSMENT/PLAN: 1. SOB (shortness of breath) - ICD9: 786.05, ICD10: R06.02 (primary diagnosis) - discussed with patient further work up for heart such as stress test- he declines at this time. Offered referral to tissue technician- declines at this time - no current red flag symptoms or exam findings - red flag symptoms discussed, verbalizes understanding - SPIROMETRY - BASELINE AND POST DILATOR - EXERCISE STRESS ECG (WITHOUT IMAGING) - ECG COMPLETE EKG Interpretation: RHYTHM: Sinus tachycardia at 104 beats per minute AXIS: Normal axis INTERVALS: Normal AR interval QRS COMPLEX: possible left atrial enlargement ST SEGMENT: Normal ST-T segments QT INTERVAL: Normal - ALBUTEROL SULFATE 2.5 MG/3 ML (0.083 %) SOLUTION FOR NEBULIZATION - PREDNISONE 20 MG TABLET - follow-up with PC (more content not included)... [facility] 06-12-2023 History of Presen t illness Narrative 06/12/2023 Patient presents with: Breathing Problem: X1 month, seen in Oct in office and ER twice since then. SUBJECTIVE: This is a 63 year old that is here today for Above Complaints. Reports he has had SOB and cough intermittently the last month. Was seen once in the office and twice in ER. At first ER visit he had blood work, EKG, CXR and troponin completed and was normal. He has completed three CXRs in all. 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 He has an albuterol inhaler which helps at times. Admits his chest has a feeling of heaviness when he is SOB, Admits SOB is worse with activity. Admits he can have difficulty breathing and orthopnea. He reports he has been given steroids each time and this has improved him each time. Denies fevers, chills, sore throat, itching watery eyes, nasal congestion, rhinorrhea, palpitations or leg edema. Has not smoked in over 45 years ER records reviewed PAST MEDICAL HISTORY Diagnosis Date Mixed hyperlipidemia 09/29/2009 Type 2 diabetes mellitus without complication (HCC) 10/09/2014 ALLERGIES Patient has no known allergies. MEDICATIONS Current Outpatient Medications Medication Sig albuterol HFA (VENTOLIN HFA) 90 mcg/actuation inhaler Inhale 2 Puffs as instructed every 4 hours as needed for wheezing/shortness of breath. metFORMIN (GLUCOPHAGE) 1,000 mg tablet Take 1 tablet by mouth twice daily with meals. . (Patient taking differently: Take 1,000 mg by mouth three times a week. .) lovastatin 40 mg tablet Take 1 tablet by mouth daily at bedtime. For cholesterol. lisinopril (PRINIVIL) 20 mg tablet Take 1 tablet by mouth once daily. dulaglutide (TRULICITY) 1.5 mg/0.5 mL pen injector Inject 1.5 mg subcutaneously one time a week. Inject once per week. Discard Pen After Blood-Glucose Meter (ONETOUCH ULTRA2) monitoring kit 1 Each as needed. One Touch Meter Kit Diagnosis: Type 2 DM - Controlled E11.9 blood sugar diagnostic (ONETOUCH ULTRA TEST) test strip Test blood sugar(s) 1 times daily. Dx: Type 2 DM - Controlled E11.9 Insulin: No Lancets (ONETOUCH ULTRASOFT LANCETS) lancets Test blood sugar(s) 1 times daily. Dx: Type 2 DM - Controlled E11.9 , Insulin: No No current facility-administered medications for this visit. Medications and allergies reviewed by this provider. SOCIAL HISTORY Social History Tobacco Use Smoking status: Never Smokeless tobacco: Never Vaping Use Vaping Use: Never used REVIEW OF SYSTEMS All other reviewed and negative other than HPI. OBJECTIVE: BP 122/68 Pulse 107 Wt 89.5 kg (197 lb 6.4 oz) SpO2 95% BMI 30.01 kg/m . Vital signs reviewed by this provider. APPEARANCE Well appearing, alert, in no acute distress, well-hydrated, well nourished. EYES conjunctiva and sclera normal. HEART RRR with normal S1 and S2, no murmurs, no gallops, no JVD appreciated LUNG wheezing right, left, posterior lung field. Lung bases CTA. No rhonchi or rales EXTREMITIES Extremities normal, No deformities, No skin discoloration, and No edema SKIN Skin color, texture, turgor normal, no suspicious rashes or lesions to exposed skin Pneumococcal Vaccine(2 - PCV) due on 11/07/2017 Hepatitis B Vaccine(1 of 3 - Risk 3-dose series) Never done Diabetic Foot Exam due on 04/24/2020 Urine Albumin:Creatinine Ratio due on 04/16/2023 Shingrix Vaccine(2 of 2) due on 06/10/2023 Hepatitis C Screening due on 10/18/2023 HIV Screening due on 10/18/2023 HbA1C due on 10/14/2023 Colorectal Cancer Screening due on 10/23/2023 Dilated Retinal Exam due on 02/12/2024 LDL Cholesterol due on 04/15/2024 Annual PCP Team Chronic Disease Visit due on 05/01/2024 BP Controlled (<130/80) due on 05/01/2024 Prostate Cancer Screening Discussion due on 10/13/2026 DTaP,Tdap,Td Vaccine(2 - Td or Tdap) due on 11/07/2026 Influenza Vaccine Completed Depression Assessment Completed RSV Vaccine Completed Covid-19 Vaccine Completed ASSESSMENT/PLAN: 1. SOB (shortness of breath) - ICD9: 786.05, ICD10: R06.02 (primary diagnosis) - discussed with patient further work up for heart such as stress test- he declines at this time. Offered referral to tissue technician- declines at this time - no current red flag symptoms or exam findings - red flag symptoms discussed, verbalizes understanding - SPIROMETRY - BASELINE AND POST DILATOR - EXERCISE STRESS ECG (WITHOUT IMAGING) - ECG COMPLETE EKG Interpretation: RHYTHM: Sinus tachycardia at 104 beats per minute AXIS: Normal axis INTERVALS: Normal AR interval QRS COMPLEX: possible left atrial enlargement ST SEGMENT: Normal ST-T segments QT INTERVAL: Normal - ALBUTEROL SULFATE 2.5 MG/3 ML (0.083 %) SOLUTION FOR NEBULIZATION - PREDNISONE 20 MG TABLET - follow-up with PCP if symptoms fail to improve to ER with red flag symptoms 2. Wheezing - ICD9: 786.07, ICD10: R06.2 - plan as in #1 - SPIROMETRY - BASELINE AND POST DILATOR - ALBUTEROL SULFATE 2.5 MG/3 ML (0.083 %) SOLUTION FOR NEBULIZATION - PREDNISONE 20 MG TABLET Eliceo Stafford APRN.AZUL Prescription instructions reviewed with patient as applicable. Patient advised if symptoms do not improve or if symptoms worsen sooner, to contact their primary care physician. Potential red flag symptoms discussed with the patient. Reviewed appropriate action plan to take if red flag symptoms occur. Patient agreeable to treatment plan. I spent a total of 30 minutes on the date of the service which included preparing to see the patient, [id number] patient care, completing clinical documentation, obtaining and/or reviewing separately obtained history, performing a medically appropriate examination, counseling and educating the patient/family/caregiver, and ordering medications, tests, or procedures. documented in this encounter [facility] 05-04-2023 Miscellaneous Notes Formattin g of this note might be different from the original. Called pt back and given Dr. Scott's information. Pt states his albuterol inhaler is not working. Gets wheezy off and on and still coughing. Pt states occasionally productive of greenish brown. Notices increasing SOB with exertion. Denies chest pain-feels like he can't take a deep breath. Encouraged pt to go to [facility] if feeling worse but pt does not want to do that. Appt given with Dr. Lima for 340 pm tomorrow. Pt seems hesitant and states will try to make the appt. Instructed again that if symptoms worsen or has difficulty breathing or chest pain, he needs to go to the ER. Pt verbalizes understanding. Encouraged to try some OTC cough medications. Symptoms were consistent with viral illness. COVID, flu, RSV negative. CXR was negative. Viral symptoms can last 10-21 days. Continue with albuterol inhaler and tessalon PRN. If symptoms change or worsen, would have him return to office for repeat check or go to ED with severe symptoms. Pt called with update. Pt was seen on Monday by Dr. Garrett and wanted you to know he is no better, still having shortness of breath off and on. Symptoms are not worse but still happening. Please advise pt. Rosalva Wise LPN documented in this encounter [facility] 05-02-2023 Miscellaneous Notes Formattin g of this note might be different from the original. Patient notified and verbalized understanding Samira Robledo Cma ----- Message from Anuradha Scott MD sent at 05/01/2023 5:27 PM EDT ----- Normal CXR. documented in this encounter [facility] 05-01-2023 Note HNO ID: [id number] Author: Lynette Santos RT(Juan José) Service: Radiology Author Type: Technologist Type: Progress Notes Filed: 05/01/2023 4:30 PM Note Text: Radiology Service Progress Note PATIENT NAME: Camelia Joshi DATE OF SERVICE: May 01, 2023 TIME: 4:24 PM PATIENT IDENTITY VERIFICATION COMPLETED USING TWO (2) IDENTIFIERS: Name and Date of confirmed by patient verbally. FALL SCREENING: Has the patient had 2 falls in the last year or 1 fall with injury or currently using an Ambulatory Assistive Device (Walker, Cane, Wheelchair, Crutches, etc.)? No PATIENT GENDER DATA: Male PATIENT RELEVANT IMPLANT DATA REVIEWED: Not Applicable RADIOLOGY DEPARTMENT: General X-ray: Exam(s) Completed: Chest X-Ray PERIPHERAL IV DATA: Not applicable SIGNED BY: RT Dylan(R) May 01, 2023 4:24 PM [facility] 05-01-2023 Note HNO ID: [id number] Author: Anuradha Scott MD Service: ? Author Type: Physician Type: Progress Notes Filed: 05/01/2023 9:19 PM Note Text: Chief Complaint Patient presents with: Shortness of Breath: X 3 days Cough: X 3 days Wheezing HPI Camelia Joshi is a 63 year old male who presents here today for Above Complaints. Patient complaining of 4 days of cough, wheezing, and SOB. Associated with myalgias, headache, chills, sore throat, chest pain with deep inspiration, intermittent nasal congestion. Treating with tylenol and zyrtec without improvement in symptoms. Denies fever, chest congestion, new loss of taste/smell,nausea, vomiting, diarrhea. Symptoms stable. No recent sick contacts. Has not tested for COVID. No known COVID exposure in the last 2 weeks. Up to date on COVID, flu, RSV vaccines. Past medical history, appointments, medications, allergies reviewed. Previous Medical History PAST MEDICAL HISTORY Diagnosis Date Mixed hyperlipidemia 09/29/2009 Type 2 diabetes mellitus without complication (HCC) 10/09/2014 Previous Surgical History PAST SURGICAL HISTORY Procedure Laterality Date NONE REFRACTIVE SURGERY OD (RIGHT EYE) Right 07/2021 REMV CATARACT EXTRACAP,INSERT LENS Right 02/2021 REMV CATARACT EXTRACAP,INSERT LENS Left 03/2021 Family History FAMILY HISTORY Problem Relation Age of Onset Coronary Artery Disease Father alive Hypertension Father Stroke Father None Sister unknown health problems None Sister unknown health problems None Mother unknown health problems - alive Patient Allergies ALLERGIES No Known Allergies Current Medications Current Outpatient Medications on File Prior to Visit Medication Sig metFORMIN (GLUCOPHAGE) 1,000 mg tablet Take 1 tablet by mouth twice daily with meals. . (Patient taking differently: Take 1,000 mg by mouth three times a week. .) lovastatin 40 mg tablet Take 1 tablet by mouth daily at bedtime. For cholesterol. lisinopril (PRINIVIL) 20 mg tablet Take 1 tablet by mouth once daily. dulaglutide (TRULICITY) 1.5 mg/0.5 mL pen injector Inject 1.5 mg subcutaneously one time a week. Inject once per week. Discard Pen After Blood-Glucose Meter (WeVorceUCH ULTRA2) monitoring kit 1 Each as needed. One Touch Meter Kit Diagnosis: Type 2 DM - Controlled E11.9 blood sugar diagnostic (ONETOUCH ULTRA TEST) test strip Test blood sugar(s) 1 times daily. Dx: Type 2 DM - Controlled E11.9 Insulin: No Lancets (ONETOUCH ULTRASOFT LANCETS) lancets Test blood sugar(s) 1 times daily. Dx: Type 2 DM - Controlled E11.9 , Insulin: No No current facility-administered medications on file prior to visit. Social History Social History Tobacco Use Smoking status: Never Smokeless tobacco: Never Vaping Use Vaping Use: Never used Review of Symptoms REVIEW OF SYSTEMS See HPI EXAM: BP 116/78 Pulse 90 Temp 36.2 ?C (97.1 ?F) Wt 95.4 kg (210 lb 6.4 oz) SpO2 95% BMI 31.99 kg/m? General Appearance: Well appearing, alert, in no acute distress, well-hydrated, well nourished.. Skin: Skin color, texture, turgor normal, no suspicious rashes or lesions. Head: Normocephalic, no masses, lesions, tenderness or abnormalities. Eyes: Anicteric sclera. Pupils are equally round and reactive to light. Extraocular movements are intact. . Ears: External ears normal, canals clear. Oropharynx: Lips, mucosa, and tongue normal, teeth and gums normal, oropharynx normal. Neck: Supple, no adenopathy; thyroid symmetric, normal size, no bruits. Lungs: moderate wheezing bilaterally with good air entry. No rales, rhonchi or condolidation. . Heart: RRR without murmur, gallop, or rubs. No ectopy. Health Maintenance List Pneumococcal Vaccine(2 - PCV) due on 11/07/2017 Hepatitis B Vaccine(1 of 3 - Risk 3-dose series) Never done Diabetic Foot Exam due on 04/24/2020 Urine Albumin:Creatinine Ratio due on 04/16/2023 Hepatitis C Screening due on 10/18/2023 HIV Screening due on 10/18/2023 Shingrix Vaccine(2 of 2) due on 06/10/2023 Covid-19 Vaccine(2022- season) due on 06/10/2023 HbA1C due on 10/14/2023 Colorectal Cancer Screening due on 10/23/2023 Dilated Retinal Exam due on 02/12/2024 LDL Cholesterol due on 04/15/2024 Annual PCP Team Chronic Disease Visit due on 04/26/2024 BP Controlled (<130/80) due on 04/26/2024 Prostate Cancer Screening Discussion due on 10/13/2026 DTaP,Tdap,Td Vaccine(2 - Td or Tdap) due on 11/07/2026 Influenza Vaccine Completed Depression Assessment Completed ASSESSMENT/PLAN: 1. Bronchitis - ICD9: 490, ICD10: J40 (primary diagnosis) Viral etiology suspected. Will treat with albuterol PRN and tessalon. Red flags for re-assessment reviewed with patient in detail. - XR CHEST 2V FRONTAL/LAT - ALBUTEROL SULFATE HFA 90 MCG/ACTUATION AEROSOL INHALER - BENZONATATE 100 MG CAPSULE - XR CHEST 2V FRONTAL/LAT 2. Viral URI with cough - ICD9: 465.9, ICD10: J06.9 - Discussed viral tonia (more content not included)... [facility] 05-01-2023 History of Presen t illness Narrative Chief Complaint Patient presents with: Shortness of Breath: X 3 days Cough: X 3 days Wheezing HPI Camelia Joshi is a 63 year old male who presents here today for Above Complaints. Patient complaining of 4 days of cough, wheezing, and SOB. Associated with myalgias, headache, chills, sore throat, chest pain with deep inspiration, intermittent nasal congestion. Treating with tylenol and zyrtec without improvement in symptoms. Denies fever, chest congestion, new loss of taste/smell,nausea, vomiting, diarrhea. Symptoms stable. No recent sick contacts. Has not tested for COVID. No known COVID exposure in the last 2 weeks. Up to date on COVID, flu, RSV vaccines. Past medical history, appointments, medications, allergies reviewed. Previous Medical History PAST MEDICAL HISTORY Diagnosis Date Mixed hyperlipidemia 09/29/2009 Type 2 diabetes mellitus without complication (HCC) 10/09/2014 Previous Surgical History PAST SURGICAL HISTORY Procedure Laterality Date NONE REFRACTIVE SURGERY OD (RIGHT EYE) Right 07/2021 REMV CATARACT EXTRACAP,INSERT LENS Right 02/2021 REMV CATARACT EXTRACAP,INSERT LENS Left 03/2021 Family History FAMILY HISTORY Problem Relation Age of Onset Coronary Artery Disease Father alive Hypertension Father Stroke Father None Sister unknown health problems None Sister unknown health problems None Mother unknown health problems - alive Patient Allergies ALLERGIES No Known Allergies Current Medications Current Outpatient Medications on File Prior to Visit Medication Sig metFORMIN (GLUCOPHAGE) 1,000 mg tablet Take 1 tablet by mouth twice daily with meals. . (Patient taking differently: Take 1,000 mg by mouth three times a week. .) lovastatin 40 mg tablet Take 1 tablet by mouth daily at bedtime. For cholesterol. lisinopril (PRINIVIL) 20 mg tablet Take 1 tablet by mouth once daily. dulaglutide (TRULICITY) 1.5 mg/0.5 mL pen injector Inject 1.5 mg subcutaneously one time a week. Inject once per week. Discard Pen After Blood-Glucose Meter (ONETOUCH ULTRA2) monitoring kit 1 Each as needed. One Touch Meter Kit Diagnosis: Type 2 DM - Controlled E11.9 blood sugar diagnostic (ONETOUCH ULTRA TEST) test strip Test blood sugar(s) 1 times daily. Dx: Type 2 DM - Controlled E11.9 Insulin: No Lancets (ONETOUCH ULTRASOFT LANCETS) lancets Test blood sugar(s) 1 times daily. Dx: Type 2 DM - Controlled E11.9 , Insulin: No No current facility-administered medications on file prior to visit. Social History Social History Tobacco Use Smoking status: Never Smokeless tobacco: Never Vaping Use Vaping Use: Never used Review of Symptoms REVIEW OF SYSTEMS See HPI EXAM: BP 116/78 Pulse 90 Temp 36.2 C (97.1 F) Wt 95.4 kg (210 lb 6.4 oz) SpO2 95% BMI 31.99 kg/m General Appearance: Well appearing, alert, in no acute distress, well-hydrated, well nourished.. Skin: Skin color, texture, turgor normal, no suspicious rashes or lesions. Head: Normocephalic, no masses, lesions, tenderness or abnormalities. Eyes: Anicteric sclera. Pupils are equally round and reactive to light. Extraocular movements are intact. . Ears: External ears normal, canals clear. Oropharynx: Lips, mucosa, and tongue normal, teeth and gums normal, oropharynx normal. Neck: Supple, no adenopathy; thyroid symmetric, normal size, no bruits. Lungs: moderate wheezing bilaterally with good air entry. No rales, rhonchi or condolidation. . Heart: RRR without murmur, gallop, or rubs. No ectopy. Health Maintenance List Pneumococcal Vaccine(2 - PCV) due on 11/07/2017 Hepatitis B Vaccine(1 of 3 - Risk 3-dose series) Never done Diabetic Foot Exam due on 04/24/2020 Urine Albumin:Creatinine Ratio due on 04/16/2023 Hepatitis C Screening due on 10/18/2023 HIV Screening due on 10/18/2023 Shingrix Vaccine(2 of 2) due on 06/10/2023 Covid-19 Vaccine( - season) due on 06/10/2023 HbA1C due on 10/14/2023 Colorectal Cancer Screening due on 10/23/2023 Dilated Retinal Exam due on 02/12/2024 LDL Cholesterol due on 04/15/2024 Annual PCP Team Chronic Disease Visit due on 04/26/2024 BP Controlled (<130/80) due on 04/26/2024 Prostate Cancer Screening Discussion due on 10/13/2026 DTaP,Tdap,Td Vaccine(2 - Td or Tdap) due on 11/07/2026 Influenza Vaccine Completed Depression Assessment Completed ASSESSMENT/PLAN: 1. Bronchitis - ICD9: 490, ICD10: J40 (primary diagnosis) Viral etiology suspected. Will treat with albuterol PRN and tessalon. Red flags for re-assessment reviewed with patient in detail. - XR CHEST 2V FRONTAL/LAT - ALBUTEROL SULFATE HFA 90 MCG/ACTUATION AEROSOL INHALER - BENZONATATE 100 MG CAPSULE - XR CHEST 2V FRONTAL/LAT 2. Viral URI with cough - ICD9: 465.9, ICD10: J06.9 - Discussed viral etiology and rationale for treatment. - Symptomatic treatment with prn analgesia - Supportive care with fluids and rest - The patient may also use OTC cough and cold meds as needed and nasal saline gtts and suction prn. - XR CHEST 2V FRONTAL/LAT - ALBUTEROL SULFATE HFA 90 MCG/ACTUATION AEROSOL INHALER - BENZONATATE 100 MG CAPSULE - XR CHEST 2V FRONTAL/LAT 3. Suspected COVID-19 virus infection - ICD9: V01.79, ICD10: Z20.822 Recommend rest, supportive care, and should isolate until: At least 5 days have passed since symptoms first appeared and At least 24 hours have passed since last fever without the use of fever-reducing medications and Symptoms (e.g., cough, shortness of breath) have improved. Should wear mask for at least 5 days after he ends isolation to prevent spread to others. Discussed Paxlovid and Lagevrio risks and benefits if positive. Patient interested in Lagevrio. - COVID & INFLUENZA A/B & RSV NAAT, ROUTINE - COVID NAAT, UPPER RESPIRATORY, ROUTINE - ROUTINE FLU A/B + RSV - XR CHEST 2V FRONTAL/LAT Anuradha Scott MD documented in this encounter [facility] 05-01-2023 Miscellaneous Notes Formattin g of this note might be different from the original. Reason for call: shortness of breath Outcome: Conferenced to the Appointment Center for scheduling. Express Care/Urgent Care advised if no appointments available. ER if worse. Reason for Disposition [1] MILD difficulty breathing (e.g., minimal/no SOB at rest, SOB with walking, pulse <100) AND [2] NEW-onset or WORSE than normal Answer Assessment - Initial Assessment Questions 1. RESPIRATORY STATUS: feels short of breath at times 2. ONSET: 5-6 days ago 3. PATTERN: intermittent; it mostly occurs when he is trying to sleep 4. SEVERITY: does not sound severe. He is speaking normally and states he has been working as usual. Hears some wheezing at times, again mostly at night while trying to sleep 5. RECURRENT SYMPTOM: denies 6. CARDIAC HISTORY: denies 7. LUNG HISTORY: denies 8. CAUSE: unknown 9. OTHER SYMPTOMS: intermittent, dry cough 11. : NA 12. TRAVEL: denies Protocols used: Breathing [id number] documented in this encounter [facility] 04-26-2023 Note HNO ID: [id number] Author: Rey Dixon APRN.DE ALCHOLIZER Service: ? Author Type: Nurse Practitioner Type: Progress Notes Filed: 04/26/2023 7:20 AM Note Text: This is a 63 year old male who presents today with: Patient presents with: 6 Month Exam HISTORY OF PRESENT ILLNESS: Camelia Joshi is a 63 year old male. Patient presents with: 6 Month Exam 6 month follow up DM: Reports overall feeling well. Medication side effects: No. Home sugar checks: Rarely Hypoglycemic spells: No. Watching diet: Sometimes. Unexpected weight loss: No. Polyuria, polydipsia: No. 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 Foot lesions or numbness or pain: No. Taking metformin at 1000 mg twice daily and Trulicity 1.5 mg weekly. A1c 7.2, following with Dr. Lopez for eye exams. Pt reports he cut back his metformin due to reading stuff on the internet about how good it is for you , has only been taking 500mg daily. HTN: Taking lisinopril 20 mg daily. Not currently checking blood pressure at home. Denies chest pain, palpitations, dizziness, or edema. Lipids: Taking lovastatin 40 mg daily. Watching diet? PAST MEDICAL HISTORY: PAST MEDICAL HISTORY Diagnosis Date Mixed hyperlipidemia 09/29/2009 Type 2 diabetes mellitus without complication (HCC) 10/09/2014 PAST SURGICAL HISTORY Procedure Laterality Date NONE REFRACTIVE SURGERY OD (RIGHT EYE) Right 07/2021 REMV CATARACT EXTRACAP,INSERT LENS Right 02/2021 REMV CATARACT EXTRACAP,INSERT LENS Left 03/2021 ALLERGIES Patient has no known allergies. MEDICATIONS Current Outpatient Medications Medication Sig metFORMIN (GLUCOPHAGE) 1,000 mg tablet Take 1 tablet by mouth twice daily with meals. . lovastatin 40 mg tablet Take 1 tablet by mouth daily at bedtime. For cholesterol. lisinopril (PRINIVIL) 20 mg tablet Take 1 tablet by mouth once daily. dulaglutide (TRULICITY) 1.5 mg/0.5 mL pen injector Inject 1.5 mg subcutaneously one time a week. Inject once per week. Discard Pen After Blood-Glucose Meter (ONETOUCH ULTRA2) monitoring kit 1 Each as needed. One Touch Meter Kit Diagnosis: Type 2 DM - Controlled E11.9 blood sugar diagnostic (ONETOUCH ULTRA TEST) test strip Test blood sugar(s) 1 times daily. Dx: Type 2 DM - Controlled E11.9 Insulin: No Lancets (ONETOUCH ULTRASOFT LANCETS) lancets Test blood sugar(s) 1 times daily. Dx: Type 2 DM - Controlled E11.9 , Insulin: No No current facility-administered medications for this visit. FAMILY HISTORY Problem Relation Age of Onset Coronary Artery Disease Father alive Hypertension Father Stroke Father None Sister unknown health problems None Sister unknown health problems None Mother unknown health problems - alive Social History Tobacco Use Smoking status: Never Smokeless tobacco: Never Vaping Use Vaping Use: Never used REVIEW OF SYSTEMS GENERAL: No weight loss, malaise or fevers/chills HEENT: Negative for frequent or significant headaches, No changes in hearing or vision. NECK: Negative for lumps, goiter, pain and significant neck swelling RESPIRATORY: Negative for cough, hemoptysis, wheezing, dyspnea or shortness of breath CARDIOVASCULAR: Negative for chest pain, leg swelling, orthopnea, or palpitations GI: No nausea, vomiting, or diarrhea/constipation. No hematochezia/melena. No heartburn or reflux symptoms. : No history of dysuria, frequency or incontinence MUSCULOSKELETAL: Negative for joint pain or swelling. SKIN: Negative for lesions, rash, and itching ENDOCRINE: Negative for cold or heat intolerance, polyuria, polydipsia and goiter NEURO: No history of headaches, syncope, paralysis, seizures or tremors MOOD: Negative for depression, anxiety, or suicidal ideation. EXAM: BP 112/70 Pulse 61 Resp 16 Wt 96.2 kg (212 lb) SpO2 96% BMI 32.23 kg/m? PHYSICAL EXAM: General Appearance: Well appearing, alert, in no acute distress, well-hydrated, well nourished.. Skin: Skin color, texture, turgor normal, no suspicious rashes or lesions. Head: Normocephalic, no masses, lesions, tenderness or abnormalities. Eyes: Anicteric sclera. Pupils are equally round and reactive to light. Extraocular movements are intact. . , Ears: External ears normal, canals clear. TMs pearly meneses cerumen noted Nose/Sinuses: Nares normal, septum midline, mucosa normal, no sinus tenderness, clear sinus drainage noted Neck: Supple, no adenopathy; thyroid symmetric, normal size, no bruits. Lungs: Lungs clear to auscultation. No wheezing, rhonchi, rales.. Heart: RRR without murmur, gallop, or rubs. No ectopy. Extremities: No deformities, edema, skin discoloration, clubbing or cyanosis. Good capillary refill. . Musculoskeletal: No joint swelling, deformity, or tenderness. Neurologic: Gait normal. Reflexes normal and symmetric. Sensation grossly intact.. Component Latest Ref Rng AND Units 04/15/2023 Protein, Total 6.3 - 8.0 g/dL 6.7 Albumin 3.9 - 4.9 (more content not included)... [facility] 04-26-2023 Instructions Rey Dixon APRN.CNP - 04/26/2023 7:12 AM EDT Get repeat fasting labs in 6 months prior to next office visit. Work on eating a low carb diet, decrease processed foods. Increase protein, veggies, and stay active. Use a daily antihistamine to help with nasal congestion (Jacklyn. Zyrtec, etc.). Flonase will also help. Follow up in 6 months or sooner as needed documented in this encounter [facility] 04-26-2023 History of Presen t illness Narrative This is a 63 year old male who presents today with: Patient presents with: 6 Month Exam HISTORY OF PRESENT ILLNESS: Camelia Joshi is a 63 year old male. Patient presents with: 6 Month Exam 6 month follow up DM: Reports overall feeling well. Medication side effects: No. Home sugar checks: Rarely Hypoglycemic spells: No. Watching diet: Sometimes. Unexpected weight loss: No. Polyuria, polydipsia: No. 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 Foot lesions or numbness or pain: No. Taking metformin at 1000 mg twice daily and Trulicity 1.5 mg weekly. A1c 7.2, following with Dr. Lopez for eye exams. Pt reports he cut back his metformin due to reading stuff on the internet about how good it is for you , has only been taking 500mg daily. HTN: Taking lisinopril 20 mg daily. Not currently checking blood pressure at home. Denies chest pain, palpitations, dizziness, or edema. Lipids: Taking lovastatin 40 mg daily. Watching diet? PAST MEDICAL HISTORY: PAST MEDICAL HISTORY Diagnosis Date Mixed hyperlipidemia 09/29/2009 Type 2 diabetes mellitus without complication (HCC) 10/09/2014 PAST SURGICAL HISTORY Procedure Laterality Date NONE REFRACTIVE SURGERY OD (RIGHT EYE) Right 07/2021 REMV CATARACT EXTRACAP,INSERT LENS Right 02/2021 REMV CATARACT EXTRACAP,INSERT LENS Left 03/2021 ALLERGIES Patient has no known allergies. MEDICATIONS Current Outpatient Medications Medication Sig metFORMIN (GLUCOPHAGE) 1,000 mg tablet Take 1 tablet by mouth twice daily with meals. . lovastatin 40 mg tablet Take 1 tablet by mouth daily at bedtime. For cholesterol. lisinopril (PRINIVIL) 20 mg tablet Take 1 tablet by mouth once daily. dulaglutide (TRULICITY) 1.5 mg/0.5 mL pen injector Inject 1.5 mg subcutaneously one time a week. Inject once per week. Discard Pen After Blood-Glucose Meter (ONETOUCH ULTRA2) monitoring kit 1 Each as needed. One Touch Meter Kit Diagnosis: Type 2 DM - Controlled E11.9 blood sugar diagnostic (ONETOUCH ULTRA TEST) test strip Test blood sugar(s) 1 times daily. Dx: Type 2 DM - Controlled E11.9 Insulin: No Lancets (ONETOUCH ULTRASOFT LANCETS) lancets Test blood sugar(s) 1 times daily. Dx: Type 2 DM - Controlled E11.9 , Insulin: No No current facility-administered medications for this visit. FAMILY HISTORY Problem Relation Age of Onset Coronary Artery Disease Father alive Hypertension Father Stroke Father None Sister unknown health problems None Sister unknown health problems None Mother unknown health problems - alive Social History Tobacco Use Smoking status: Never Smokeless tobacco: Never Vaping Use Vaping Use: Never used REVIEW OF SYSTEMS GENERAL: No weight loss, malaise or fevers/chills HEENT: Negative for frequent or significant headaches, No changes in hearing or vision. NECK: Negative for lumps, goiter, pain and significant neck swelling RESPIRATORY: Negative for cough, hemoptysis, wheezing, dyspnea or shortness of breath CARDIOVASCULAR: Negative for chest pain, leg swelling, orthopnea, or palpitations GI: No nausea, vomiting, or diarrhea/constipation. No hematochezia/melena. No heartburn or reflux symptoms. : No history of dysuria, frequency or incontinence MUSCULOSKELETAL: Negative for joint pain or swelling. SKIN: Negative for lesions, rash, and itching ENDOCRINE: Negative for cold or heat intolerance, polyuria, polydipsia and goiter NEURO: No history of headaches, syncope, paralysis, seizures or tremors MOOD: Negative for depression, anxiety, or suicidal ideation. EXAM: BP 112/70 Pulse 61 Resp 16 Wt 96.2 kg (212 lb) SpO2 96% BMI 32.23 kg/m PHYSICAL EXAM: General Appearance: Well appearing, alert, in no acute distress, well-hydrated, well nourished.. Skin: Skin color, texture, turgor normal, no suspicious rashes or lesions. Head: Normocephalic, no masses, lesions, tenderness or abnormalities. Eyes: Anicteric sclera. Pupils are equally round and reactive to light. Extraocular movements are intact. . , Ears: External ears normal, canals clear. TMs pearly meneses cerumen noted Nose/Sinuses: Nares normal, septum midline, mucosa normal, no sinus tenderness, clear sinus drainage noted Neck: Supple, no adenopathy; thyroid symmetric, normal size, no bruits. Lungs: Lungs clear to auscultation. No wheezing, rhonchi, rales.. Heart: RRR without murmur, gallop, or rubs. No ectopy. Extremities: No deformities, edema, skin discoloration, clubbing or cyanosis. Good capillary refill. . Musculoskeletal: No joint swelling, deformity, or tenderness. Neurologic: Gait normal. Reflexes normal and symmetric. Sensation grossly intact.. Component Latest Ref Rng & Units 04/15/2023 Protein, Total 6.3 - 8.0 g/dL 6.7 Albumin 3.9 - 4.9 g/dL 4.4 Calcium 8.5 - 10.2 mg/dL 9.4 Bilirubin, Total 0.2 - 1.3 mg/dL 0.5 Alkaline Phosphatase 38 - 113 U/L 56 AST 14 - 40 U/L 26 ALT 10 - 54 U/L 22 Glucose 74 - 99 mg/dL 144 (H) BUN 9 - 24 mg/dL 13 Creatinine 0.73 - 1.22 mg/dL 0.85 Sodium 136 - 144 mmol/L 138 Potassium 3.7 - 5.1 mmol/L 4.8 Chloride 97 - 105 mmol/L 103 CO2 22 - 30 mmol/L 22 Anion Gap 9 - 18 mmol/L 13 eGFR >=60 mL/min/1.73m 97 Cholesterol, Total <200 mg/dL 149 Triglyceride <150 mg/dL 97 HDL Cholesterol >39 mg/dL 34 (L) Non HDL Cholesterol <130 mg/dL 115 Fasting Time hrs 12 VLDL Cholesterol <30 mg/dL 19 TC:HDL Ratio <5.10 4.38 LDL Cholesterol <100 mg/dL 96 LDL:HDL Ratio <2.54 2.82 (H) Hemoglobin A1C 4.3 - 5.6 % 7.2 (H) Estimated Average Glucose mg/dL 160 ASSESSMENT/PLAN: 1. Type 2 diabetes mellitus without complication, without long-term current use of insulin (HCC) - ICD9: 250.00, ICD10: E11.9 (primary diagnosis) - Worsening control - Continue current medications - Counseled on healthy diet and regular exercise - Discussed need for and benefit of weight loss. BMI 32.23 kg/(m^2) - Discussed adding on glipizide in the future or increasing Trulicity - Get repeat labs in 6 months prior to office visit - COMP METABOLIC PANEL - HGB A1C 2. Hypertension, unspecified type - ICD9: 401.9, ICD10: I10 - Controlled - Continue current medications - Recommend home blood pressure monitoring, to bring results to next visit - Encouraged sodium restriction, DASH or Mediterranean diet - Recommend regular aerobic exercise - Discussed need for and benefit of weight loss. BMI 32.23 kg/(m^2) 3. Mixed hyperlipidemia - ICD9: 272.2, ICD10: E78.2 - Controlled - Continue current medications - Counseled on healthy diet and regular exercise 4. Seasonal allergic rhinitis, unspecified trigger - ICD9: 477.9, ICD10: J30.2 - Recommend taking daily antihistamine and Flonase twice daily Follow-up in 6 months or sooner as needed. Discussed treatment plan and patient voices understanding. Patient's questions answered appropriately. Medications and potential side effects were discussed and patient voices understanding. Rey Dixon APRN.CNP This note was partially generated using [employer] voice recognition system. Note was reviewed for accuracy. There may be minor misspellings or grammar miscues with [employer] voice recognition. documented in this encounter [facility] 10-17-2022 Note HNO ID: [id number] Author: Divya Lima MD Service: ? Author Type: Physician Type: Progress Notes Filed: 10/17/2022 7:15 PM Note Text: Chief Complaint Patient presents with: F/U 6 Month HPI Camelia Joshi is a 62 year old male who presents here today for 6 month follow up. Here today for his routine follow up. Staying busy with work. No bowel, Gi, or urinary issues. Agrees to routine stool test. DM: Taking Metformin 1,000 mg 1 pill BID and Trulicity 1.5 mg weekly. Checking BS at home maybe once a month. States he does need to do better at this. Denies any hypoglycemic episodes. Has neuropathy pain in b/l feet, not unbearable. Unable to recall when his last eye exam was done, but does need one. Sees Dr. Lopez. HTN: Taking Lisinopril 20 mg daily. Does not check BP at home or have any symptoms of chest pain, dizziness, or SOB. Lipid: Taking Lovastatin 40 mg daily, tolerating well, no myalgia or gi upset. Tries to watch diet, but notes this is hard. Has lost weight over the past 6-8 months, doesn't feel as hungry. Denies any formal exercise. Over this winter he slipped on the running board of his truck and hit his left elbow on arm rest. When he fell he had immediate burning pain. Pain has improved, but notes there's a lump there he notices. Still having numbness in left two fingers and hand. Wondering if he has a pinched nerve, will improve if he shakes it or lays it over the edge of his bed. Worse due to sleeping on his arm with his arm bent. This is now more constant then before. HM - Declines Hep C/HIV screening. Past medical history, appointments, medications, allergies reviewed. Previous Medical History PAST MEDICAL HISTORY Diagnosis Date Mixed hyperlipidemia 09/29/2009 Type 2 diabetes mellitus without complication (HCC) 10/09/2014 Previous Surgical History PAST SURGICAL HISTORY Procedure Laterality Date NONE REFRACTIVE SURGERY OD (RIGHT EYE) Right 07/2021 REMV CATARACT EXTRACAP,INSERT LENS Right 02/2021 REMV CATARACT EXTRACAP,INSERT LENS Left 03/2021 Family History FAMILY HISTORY Problem Relation Age of Onset Coronary Artery Disease Father alive Hypertension Father Stroke Father None Sister unknown health problems None Sister unknown health problems None Mother unknown health problems - alive Patient Allergies ALLERGIES No Known Allergies Current Medications Current Outpatient Medications on File Prior to Visit Medication Sig dulaglutide (TRULICITY) 1.5 mg/0.5 mL pen injector Inject 1.5 mg subcutaneously one time a week. Inject once per week. Discard Pen After metFORMIN (GLUCOPHAGE) 1,000 mg tablet Take 1 tablet by mouth twice daily with meals. . lovastatin 40 mg tablet Take 1 tablet by mouth daily at bedtime. For cholesterol. lisinopril (PRINIVIL) 20 mg tablet Take 1 tablet by mouth once daily. Blood-Glucose Meter (ONETOUCH ULTRA2) monitoring kit 1 Each as needed. One Touch Meter Kit Diagnosis: Type 2 DM - Controlled E11.9 blood sugar diagnostic (ONETOUCH ULTRA TEST) test strip Test blood sugar(s) 1 times daily. Dx: Type 2 DM - Controlled E11.9 Insulin: No Lancets (ONETOUCH ULTRASOFT LANCETS) lancets Test blood sugar(s) 1 times daily. Dx: Type 2 DM - Controlled E11.9 , Insulin: No No current facility-administered medications on file prior to visit. Social History Social History Tobacco Use Smoking status: Never Smokeless tobacco: Never Vaping Use Vaping Use: Never used EXAM: BP 122/74 (BP Site: Left Arm, BP Position: Sitting, BP Cuff Size: Regular Adult) Pulse 80 Resp 16 Wt 95.5 kg (210 lb 9.6 oz) BMI 32.02 kg/m? General Appearance: Well appearing, alert, in no acute distress, well-hydrated, well nourished. and Overweight. Lungs: Lungs clear to auscultation. No wheezing, rhonchi, rales.. Heart: RRR without murmur, gallop, or rubs. No ectopy. Extremities: L elbow examined. Lump felt on exam, 2-3 cm, at distal extensor surface of upper arm, soft, non tender. No real pain to palpate. Health Maintenance List BP CONTROLLED (<130/80) Never done SHINGRIX VACCINE(1 of 2) Never done PNEUMOCOCCAL(2 - PCV) due on 11/07/2017 DIABETIC FOOT EXAM due on 04/24/2020 DILATED RETINAL EXAM due on 10/31/2021 DEPRESSION ASSESSMENT Never done COLORECTAL CANCER SCREENING due on 10/13/2022 HEPATITIS C SCREENING due on 10/13/2022 HIV SCREENING due on 10/13/2022 HBA1C due on 10/14/2022 URINE ALBUMIN:CREATININE RATIO due on 04/16/2023 LDL CHOLESTEROL due on 04/16/2023 ANNUAL PCP TEAM CHRONIC DISEASE VISIT due on 04/20/2023 PROSTATE CANCER SCREENING DISCUSSION due on 10/13/2026 DTAP,TDAP,TD(2 - Td or Tdap) due on 11/07/2026 INFLUENZA Completed COVID-19 VACCINE Completed Data reviewed Appointment on 10/15/2022 Component Date Value Protein, Total 10/15/2022 7.6 Albumin 10/15/2022 4.4 Calcium, Total 10/15/2022 9.6 Bilirubin, Total 10/15/2022 0.7 Alkaline Phosphatase 10/15/2022 64 AST 03/ (more content not included)... [facility] 10-17-2022 History of Presen t illness Narrative Chief Complaint Patient presents with: F/U 6 Month HPI aCmelia Joshi is a 62 year old male who presents here today for 6 month follow up. Here today for his routine follow up. Staying busy with work. No bowel, Gi, or urinary issues. Agrees to routine stool test. DM: Taking Metformin 1,000 mg 1 pill BID and Trulicity 1.5 mg weekly. Checking BS at home maybe once a month. States he does need to do better at this. Denies any hypoglycemic episodes. Has neuropathy pain in b/l feet, not unbearable. Unable to recall when his last eye exam was done, but does need one. Sees Dr. Lopez. HTN: Taking Lisinopril 20 mg daily. Does not check BP at home or have any symptoms of chest pain, dizziness, or SOB. Lipid: Taking Lovastatin 40 mg daily, tolerating well, no myalgia or gi upset. Tries to watch diet, but notes this is hard. Has lost weight over the past 6-8 months, doesn't feel as hungry. Denies any formal exercise. Over this winter he slipped on the running board of his truck and hit his left elbow on arm rest. When he fell he had immediate burning pain. Pain has improved, but notes there's a lump there he notices. Still having numbness in left two fingers and hand. Wondering if he has a pinched nerve, will improve if he shakes it or lays it over the edge of his bed. Worse due to sleeping on his arm with his arm bent. This is now more constant then before. - Declines Hep C/HIV screening. Past medical history, appointments, medications, allergies reviewed. Previous Medical History PAST MEDICAL HISTORY Diagnosis Date Mixed hyperlipidemia 09/29/2009 Type 2 diabetes mellitus without complication (HCC) 10/09/2014 Previous Surgical History PAST SURGICAL HISTORY Procedure Laterality Date NONE REFRACTIVE SURGERY OD (RIGHT EYE) Right 07/2021 REMV CATARACT EXTRACAP,INSERT LENS Right 02/2021 REMV CATARACT EXTRACAP,INSERT LENS Left 03/2021 Family History FAMILY HISTORY Problem Relation Age of Onset Coronary Artery Disease Father alive Hypertension Father Stroke Father None Sister unknown health problems None Sister unknown health problems None Mother unknown health problems - alive Patient Allergies ALLERGIES No Known Allergies Current Medications Current Outpatient Medications on File Prior to Visit Medication Sig dulaglutide (TRULICITY) 1.5 mg/0.5 mL pen injector Inject 1.5 mg subcutaneously one time a week. Inject once per week. Discard Pen After metFORMIN (GLUCOPHAGE) 1,000 mg tablet Take 1 tablet by mouth twice daily with meals. . lovastatin 40 mg tablet Take 1 tablet by mouth daily at bedtime. For cholesterol. lisinopril (PRINIVIL) 20 mg tablet Take 1 tablet by mouth once daily. Blood-Glucose Meter (ONETOUCH ULTRA2) monitoring kit 1 Each as needed. One Touch Meter Kit Diagnosis: Type 2 DM - Controlled E11.9 blood sugar diagnostic (ONETOUCH ULTRA TEST) test strip Test blood sugar(s) 1 times daily. Dx: Type 2 DM - Controlled E11.9 Insulin: No Lancets (ONETOUCH ULTRASOFT LANCETS) lancets Test blood sugar(s) 1 times daily. Dx: Type 2 DM - Controlled E11.9 , Insulin: No No current facility-administered medications on file prior to visit. Social History Social History Tobacco Use Smoking status: Never Smokeless tobacco: Never Vaping Use Vaping Use: Never used EXAM: BP 122/74 (BP Site: Left Arm, BP Position: Sitting, BP Cuff Size: Regular Adult) Pulse 80 Resp 16 Wt 95.5 kg (210 lb 9.6 oz) BMI 32.02 kg/m General Appearance: Well appearing, alert, in no acute distress, well-hydrated, well nourished. and Overweight. Lungs: Lungs clear to auscultation. No wheezing, rhonchi, rales.. Heart: RRR without murmur, gallop, or rubs. No ectopy. Extremities: L elbow examined. Lump felt on exam, 2-3 cm, at distal extensor surface of upper arm, soft, non tender. No real pain to palpate. Health Maintenance List BP CONTROLLED (<130/80) Never done SHINGRIX VACCINE(1 of 2) Never done PNEUMOCOCCAL(2 - PCV) due on 11/07/2017 DIABETIC FOOT EXAM due on 04/24/2020 DILATED RETINAL EXAM due on 10/31/2021 DEPRESSION ASSESSMENT Never done COLORECTAL CANCER SCREENING due on 10/13/2022 HEPATITIS C SCREENING due on 10/13/2022 HIV SCREENING due on 10/13/2022 HBA1C due on 10/14/2022 URINE ALBUMIN:CREATININE RATIO due on 04/16/2023 LDL CHOLESTEROL due on 04/16/2023 ANNUAL PCP TEAM CHRONIC DISEASE VISIT due on 04/20/2023 PROSTATE CANCER SCREENING DISCUSSION due on 10/13/2026 DTAP,TDAP,TD(2 - Td or Tdap) due on 11/07/2026 INFLUENZA Completed COVID-19 VACCINE Completed Data reviewed Appointment on 10/15/2022 Component Date Value Protein, Total 10/15/2022 7.6 Albumin 10/15/2022 4.4 Calcium, Total 10/15/2022 9.6 Bilirubin, Total 10/15/2022 0.7 Alkaline Phosphatase 10/15/2022 64 AST 10/15/2022 18 ALT 10/15/2022 17 Glucose 10/15/2022 129 (A) BUN 10/15/2022 15 Creatinine 10/15/2022 0.96 Sodium 10/15/2022 139 Potassium 10/15/2022 4.5 Chloride 10/15/2022 103 CO2 10/15/2022 25 Anion Gap 10/15/2022 11 Estimated Glomerular Sameer* 10/15/2022 89 Cholesterol, Total 10/15/2022 164 Triglyceride 10/15/2022 84 HDL Cholesterol 10/15/2022 34 (A) Non HDL Cholesterol 10/15/2022 130 (A) Fasting Time 10/15/2022 12 VLDL Cholesterol 10/15/2022 17 TC:HDL Ratio 10/15/2022 4.82 LDL Cholesterol 10/15/2022 113 (A) LDL:HDL Ratio 10/15/2022 3.32 (A) Hemoglobin A1C 10/15/2022 6.6 (A) Estimated Average Glucose 10/15/2022 143 ASSESSMENT/PLAN: 1. Type 2 diabetes mellitus without complication, without long-term current use of insulin (HCC) - ICD9: 250.00, ICD10: E11.9 (primary diagnosis) - Controlled - Continue current medications - Counseled on healthy diet and regular exercise - METFORMIN 1,000 MG TABLET - LISINOPRIL 20 MG TABLET - COMP METABOLIC PANEL - HGB A1C 2. Hypertension, unspecified type - ICD9: 401.9, ICD10: I10 - good control - Continue current medication(s) - Recommended regular aerobic exercise. - Recommend home blood pressure monitoring, to bring results in on next visit - Goal of BP <130/80 - COMP METABOLIC PANEL - LIPID PANEL BASIC 3. Mixed hyperlipidemia - ICD9: 272.2, ICD10: E78.2 - good control - Continue current medication. - Encouraged following a low fat, low cholesterol diet. - Discussed the benefits of regular aerobic exercise and weight loss. - LOVASTATIN 40 MG TABLET - COMP METABOLIC PANEL - LIPID PANEL BASIC 4. Numbness of left hand - ICD9: 782.0, ICD10: R20.0 - Cont to monitor - Positional, possible carpal tunnel or pinched nerve 5. Screening for colon cancer - ICD9: V76.51, ICD10: Z12.11 - IFOBT given to pt in office - FECAL OCCULT BLOOD TEST 6 mo f/u with labs I agree with the Chief Complaint, ROS, and Past Histories independently gathered by the clinical customer support analyst and the remaining scribed note accurately describes my personal service to the patient. Medical Decision Making: Problems: Moderate: 2+ stable chronic illnesses Data: Unique test result(s) reviewed: 2 Unique test(s) ordered: 2 Risk: Moderate: Drug management Medical Decision Making Level: 4 - Moderate Divya Lima MD The documentation for this note was completed by Diana Pathak Ma acting as scribe for Divya Lima MD. October 17, 2022 6:48 PM. Diana Pathak Ma documented in this encounter [facility] 07-19-2022 Miscellaneous Notes Formattin g of this note might be different from the original. OK to refill as ordered Divya Lima MD Pharmacy verified in [facility] Patient has been identified by name and date of : Yes Patient aware RX will be sent to pharmacy. No need to notify patient. Patient phones for refill(s): Requested Prescriptions Pending Prescriptions Disp Refills dulaglutide (TRULICITY) 1.5 mg/0.5 mL pen injector 12 Each 3 Sig: Inject 1.5 mg subcutaneously one time a week. Inject once per week. Discard Pen After Date of last office visit : 04/20/2022 Labs-04/16/22 Date of next office visit : 10/17/2022 med filled 08/09/21 Last 2 Encounter Wt Readings: Date: Wt: 04/20/2022 97.9 kg (215 lb 12.8 oz) 10/13/2021 99.9 kg (220 lb 3.2 oz) Please advise. Kaykay Choi Pss documented in this encounter [facility] 04-20-2022 History of Presen t illness Narrative Chief Complaint Patient presents with: F/U 6 Month HPI Camelia Joshi is a 62 year old male who presents here today for 6 month follow up. Denies any bowel, Gi, or urinary issues. HTN: Taking Lisinopril 20 mg daily, this was increased at previous OV. Denies any chest pains, dizziness, or SOB. Denies checking his BP at home. Lipid: Taking Lovastatin 40 mg daily, tolerating well. Increased at previous OV. Admits he could do better with his diet. Denies any exericise. DM: Taking Trulicity 1.5 mg weekly and Metformin 1,000 mg 1 pill BID. No hypoglycemic episodes. Occasional numbness in bilateral feet and left hand. Occasionally will check sugars once a month. Unable to recall his readings. Due for Eye Exam. HM - Declines depression symptoms. Waiting april to get Flu/Covid booster. Past medical history, appointments, medications, allergies reviewed. Previous Medical History PAST MEDICAL HISTORY Diagnosis Date Mixed hyperlipidemia 09/29/2009 Type 2 diabetes mellitus without complication (HCC) 10/09/2014 Previous Surgical History PAST SURGICAL HISTORY Procedure Laterality Date NONE REFRACTIVE SURGERY OD (RIGHT EYE) Right 07/2021 REMV CATARACT EXTRACAP,INSERT LENS Right 02/2021 REMV CATARACT EXTRACAP,INSERT LENS Left 03/2021 Family History FAMILY HISTORY Problem Relation Age of Onset Coronary Artery Disease Father alive Hypertension Father Stroke Father None Sister unknown health problems None Sister unknown health problems None Mother unknown health problems - alive Patient Allergies ALLERGIES No Known Allergies Current Medications Current Outpatient Medications on File Prior to Visit Medication Sig metFORMIN (GLUCOPHAGE) 1,000 mg tablet Take 1 tablet by mouth twice daily with meals. . lovastatin 40 mg tablet Take 1 tablet by mouth daily at bedtime. For cholesterol. lisinopril (PRINIVIL) 20 mg tablet Take 1 tablet by mouth once daily. dulaglutide (TRULICITY) 1.5 mg/0.5 mL pen injector Inject 1.5 mg subcutaneously one time a week. Inject once per week. Discard Pen After Blood-Glucose Meter (ONETOUCH ULTRA2) monitoring kit 1 Each as needed. One Touch Meter Kit Diagnosis: Type 2 DM - Controlled E11.9 blood sugar diagnostic (ONETOUCH ULTRA TEST) test strip Test blood sugar(s) 1 times daily. Dx: Type 2 DM - Controlled E11.9 Insulin: No Lancets (ONETOUCH ULTRASOFT LANCETS) lancets Test blood sugar(s) 1 times daily. Dx: Type 2 DM - Controlled E11.9 , Insulin: No No current facility-administered medications on file prior to visit. Social History Social History Tobacco Use Smoking status: Never Smokeless tobacco: Never Vaping Use Vaping Use: Never used EXAM: BP 142/86 Pulse 84 Resp 16 Wt 97.9 kg (215 lb 12.8 oz) BMI 32.81 kg/m General Appearance: Well appearing, alert, in no acute distress, well-hydrated, well nourished.. Lungs: Lungs clear to auscultation. No wheezing, rhonchi, rales.. Heart: RRR without murmur, gallop, or rubs. No ectopy. Health Maintenance List SHINGRIX VACCINE(1 of 2) Never done PNEUMOCOCCAL(2 - PCV) due on 11/07/2017 DIABETIC FOOT EXAM due on 04/24/2020 URINE ALBUMIN:CREATININE RATIO due on 10/03/2021 COVID-19 VACCINE(4 - Booster for Moderna series) due on 10/22/2021 DILATED RETINAL EXAM due on 10/31/2021 HBA1C due on 01/02/2022 INFLUENZA(1) due on 03/24/2022 HEPATITIS C SCREENING due on 10/13/2022 HIV SCREENING due on 10/13/2022 LDL CHOLESTEROL due on 10/02/2022 COLORECTAL CANCER SCREENING due on 10/13/2022 ANNUAL PCP TEAM CHRONIC DISEASE VISIT due on 10/13/2022 DEPRESSION SCREENING due on 10/13/2022 PROSTATE CANCER SCREENING DISCUSSION due on 10/13/2026 DTAP,TDAP,TD(2 - Td or Tdap) due on 11/07/2026 Data reviewed Appointment on 04/16/2022 Component Date Value Protein, Total 04/16/2022 7.2 Albumin 04/16/2022 4.4 Calcium, Total 04/16/2022 9.2 Bilirubin, Total 04/16/2022 0.5 Alkaline Phosphatase 04/16/2022 67 AST 04/16/2022 23 ALT 04/16/2022 19 Glucose 04/16/2022 120 (A) BUN 04/16/2022 14 Creatinine 04/16/2022 0.88 Sodium 04/16/2022 139 Potassium 04/16/2022 4.1 Chloride 04/16/2022 103 CO2 04/16/2022 22 Anion Gap 04/16/2022 14 Estimated Glomerular Sameer* 04/16/2022 97 Hemoglobin A1C 04/16/2022 7.1 (A) Estimated Average Glucose 04/16/2022 157 Cholesterol, Total 04/16/2022 147 Triglyceride 04/16/2022 65 HDL Cholesterol 04/16/2022 37 (A) Non HDL Cholesterol 04/16/2022 110 Fasting Time 04/16/2022 12 VLDL Cholesterol 04/16/2022 13 TC:HDL Ratio 04/16/2022 3.97 LDL Cholesterol 04/16/2022 97 LDL:HDL Ratio 04/16/2022 2.62 (A) Creatinine, Ur Random (U* 04/16/2022 190.7 Albumin, Urine Random 04/16/2022 16.5 Albumin/Creat Ratio 04/16/2022 9 ASSESSMENT/PLAN: 1. Type 2 diabetes mellitus without complication, without long-term current use of insulin (HCC) - ICD9: 250.00, ICD10: E11.9 (primary diagnosis) Controlled. - Continue current medications - COMP METABOLIC PANEL - LIPID PANEL BASIC - HGB A1C 2. Mixed hyperlipidemia - ICD9: 272.2, ICD10: E78.2 - good control on no meds - Encouraged following a low fat, low cholesterol diet. - COMP METABOLIC PANEL - LIPID PANEL BASIC 3. Hypertension, unspecified type - ICD9: 401.9, ICD10: I10 - fair control - Continue current medication(s) - Recommended regular aerobic exercise. - Recommend home blood pressure monitoring, to bring results in on next visit - Goal of BP <130/80 - COMP METABOLIC PANEL - LIPID PANEL BASIC Follow up in 6 months Medical Decision Making: Problems: Moderate: 2+ stable chronic illnesses Data: Unique test result(s) reviewed: 3+ Unique test(s) ordered: 2 Risk: Moderate: Drug management Medical Decision Making Level: 4 - Moderate Divya Lima MD documented in this encounter [facility] 10-13-2021 History of Presen t illness Narrative Chief Complaint Patient presents with: F/U 6 Month HPI Camelia Joshi is a 61 year old male who presents here today for 6 month follow up. Here today for a 6 month follow up with labs. Has new job; working for [email or web address] in [place]; traveling back and forth some. GI/Uro - Okay with completing stool test. Denies any stomach or bowel issues. HTN: Denies checking BP at home. Taking Lisinopril 10 mg daily. No chest pains, dizziness, or SOB. Lipid: Is on Lovastatin 20 mg daily at bedtime, no myalgia, gi upset or side effects. Admits to not really watching his diet. No regular exercise, but on his feet a lot at work.. DM: Checking BS at home but not regularly like he should, maybe 1-2 times per week. Unable to recall what his readings are. Denies any hypoglycemic episodes. Some tingling in the feet, not any worse. Taking Trulicity 1.5 mg injection weekly (increase last visit) and Metformin 1,000 mg BID. His A1c tends to go up over winter months. HM - Declines Depression, HIV, Hep C screening. Agrees to IFOBT. Past medical history, appointments, medications, allergies reviewed. Previous Medical History PAST MEDICAL HISTORY Diagnosis Date Mixed hyperlipidemia 09/29/2009 Type 2 diabetes mellitus without complication (HCC) 10/09/2014 Previous Surgical History PAST SURGICAL HISTORY Procedure Laterality Date NONE REMV CATARACT EXTRACAP,INSERT LENS Right 02/2021 Family History FAMILY HISTORY Problem Relation Age of Onset Coronary Artery Disease Father alive Hypertension Father Stroke Father None Sister unknown health problems None Sister unknown health problems None Mother unknown health problems - alive Patient Allergies ALLERGIES No Known Allergies Current Medications Current Outpatient Medications on File Prior to Visit Medication Sig dulaglutide (TRULICITY) 1.5 mg/0.5 mL pen injector Inject 1.5 mg subcutaneously one time a week. Inject once per week. Discard Pen After metFORMIN (GLUCOPHAGE) 1,000 mg tablet Take 1 tablet by mouth twice daily with meals. . lovastatin (MEVACOR) 20 mg tablet Take 1 tablet by mouth daily at bedtime. For cholesterol. lisinopril (PRINIVIL) 10 mg tablet Take 1 tablet by mouth once daily. Blood-Glucose Meter (ONETOUCH ULTRA2) monitoring kit 1 Each as needed. One Touch Meter Kit Diagnosis: Type 2 DM - Controlled E11.9 blood sugar diagnostic (ONETOUCH ULTRA TEST) test strip Test blood sugar(s) 1 times daily. Dx: Type 2 DM - Controlled E11.9 Insulin: No Lancets (ONETOUCH ULTRASOFT LANCETS) lancets Test blood sugar(s) 1 times daily. Dx: Type 2 DM - Controlled E11.9 , Insulin: No No current facility-administered medications on file prior to visit. Social History Social History Tobacco Use Smoking status: Never Smoker Smokeless tobacco: Never Used Vaping Use Vaping Use: Never used Substance Use Topics Alcohol use: Not on file Comment: rarely Drug use: Not on file EXAM: BP 142/78 Pulse 82 Resp 16 Wt 99.9 kg (220 lb 3.2 oz) BMI 33.48 kg/m General Appearance: Well appearing, alert, in no acute distress, well-hydrated, well nourished.. Lungs: Lungs clear to auscultation. No wheezing, rhonchi, rales.. Heart: RRR without murmur, gallop, or rubs. No ectopy. Health Maintenance List SHINGRIX VACCINE(1 of 2) Never done PROSTATE CANCER SCREENING DISCUSSION due on 09/20/2019 COLORECTAL CANCER SCREENING due on 04/13/2020 DIABETIC FOOT EXAM due on 04/24/2020 DEPRESSION SCREENING due on 10/07/2021 URINE ALBUMIN:CREATININE RATIO due on 10/03/2021 DILATED RETINAL EXAM due on 10/31/2021 HEPATITIS C SCREENING due on 10/07/2021 HIV SCREENING due on 10/07/2021 HBA1C due on 01/02/2022 ANNUAL PCP TEAM CHRONIC DISEASE VISIT due on 04/14/2022 LDL CHOLESTEROL due on 10/02/2022 DTAP,TDAP,TD(2 - Td or Tdap) due on 11/07/2026 ONE PNEUMOVAX PRIOR TO AGE 65 Completed INFLUENZA Completed COVID-19 VACCINE Completed MENINGOCOCCAL CONJUGATE Aged Out Data reviewed Appointment on 10/02/2021 Component Date Value Protein, Total 10/02/2021 8.1 (A) Albumin 10/02/2021 4.7 Calcium, Total 10/02/2021 10.0 Bilirubin, Total 10/02/2021 0.6 Alkaline Phosphatase 10/02/2021 77 AST 10/02/2021 44 (A) ALT 10/02/2021 41 Glucose 10/02/2021 270 (A) BUN 10/02/2021 12 Creatinine 10/02/2021 0.86 Sodium 10/02/2021 136 Potassium 10/02/2021 Chloride 10/02/2021 98 CO2 10/02/2021 20 (A) Anion Gap 10/02/2021 18 Estimated Glomerular Sameer* 10/02/2021 98 Cholesterol, Total 10/02/2021 196 Triglyceride 10/02/2021 180 (A) HDL Cholesterol 10/02/2021 35 (A) Non HDL Cholesterol 10/02/2021 161 (A) Fasting Time 10/02/2021 15 VLDL Cholesterol 10/02/2021 36 (A) TC:HDL Ratio 10/02/2021 5.60 (A) LDL Cholesterol 10/02/2021 125 (A) LDL:HDL Ratio 10/02/2021 3.57 (A) Hemoglobin A1C 10/02/2021 10.1 (A) Estimated Average Glucose 10/02/2021 243 ASSESSMENT/PLAN: 1. Type 2 diabetes mellitus without complication, without long-term current use of insulin (HCC) - ICD9: 250.00, ICD10: E11.9 (primary diagnosis) poorly controlled - Continue current medication; he declines any additional meds at this time; prefers to work on diet and lifestyle for 6 moths and see if he improvess - METFORMIN 1,000 MG TABLET - LISINOPRIL 10 MG TABLET - LISINOPRIL 20 MG TABLET - COMP METABOLIC PANEL - HGB A1C - LIPID PANEL BASIC - ALBUMIN/CREAT RATIO RND UR 2. Mixed hyperlipidemia - ICD9: 272.2, ICD10: E78.2 - suboptimal control - Increase dose of lovastatin (Mevacor) 40 mg - LOVASTATIN 20 MG TABLET - LOVASTATIN 40 MG TABLET - COMP METABOLIC PANEL - LIPID PANEL BASIC 3. Hypertension, unspecified type - ICD9: 401.9, ICD10: I10 - suboptimal control - Increase lisinopril (Zestril/Prinivil) - Recommended regular aerobic exercise. - Recommend home blood pressure monitoring, to bring results in on next visit - Goal of BP <140/90 - ALBUMIN/CREAT RATIO RND UR 4. Screening for colon cancer - ICD9: V76.51, ICD10: Z12.11 - FECAL OCCULT BLOOD TEST Follow up in 6 months with labs prior I agree with the Chief Complaint, ROS, and Past Histories independently gathered by the clinical customer support analyst and the remaining scribed note accurately describes my personal service to the patient. Medical Decision Making: Problems: Moderate: 2+ stable chronic illnesses Data: Unique test result(s) reviewed: 3+ Unique test(s) ordered: 3+ Risk: Moderate: Drug management Medical Decision Making Level: 4 - Moderate Divya Lima MD The documentation for this note was completed by Diana Pathak Ma acting as scribe for Divya Lima MD. October 13, 2021 6:31 PM. Diana Pathak Ma documented in this encounter [facility]* Diagnosis Type 2 diabetes mellitus without complication, without long-term current use of insulin (HCC)- Primary Mixed hyperlipidemia Hypertension, unspecified type [facility] Diagnosis Type 2 diabetes mellitus without complication, without long-term current use of insulin ([facility]) [facility] Diagnosis Type 2 diabetes mellitus without complication, without long-term current use of insulin (HCC)- Primary Hypertension, unspecified type Mixed hyperlipidemia Numbness of left hand Screening for colon cancer Special screening for malignant neoplasms, colon documented in this encounter [facility] note* Diagnosis Type 2 diabetes mellitus without complication, without long-term current use of insulin (HCC)- Primary Hypertension, unspecified type Mixed hyperlipidemia Seasonal allergic rhinitis, unspecified trigger documented in this encounter [facility] note* Diagnosis Bronchitis- Primary Bronchitis, not specified as acute or chronic Viral URI with cough Acute upper respiratory infections of unspecified site Suspected COVID-19 virus infection documented in this encounter [facility] note* Diagnosis SOB (shortness of breath)- Primary Shortness of breath Wheezing documented in this encounter [facility] for referral (narrative)* Outpatient Procedure (Routine) - Pending Review Specialty Diagnoses / Procedures Referred By Contac t Referred To [facility] Diagnoses SOB (shortness of breath) Procedures ECG COMPLETE ECG ROUTINE ECG W/LEAST 12 LDS W/I&R LeslyelogEliceo anderson APRN.CNP [address] [place] [address] [facility] [place] [facility] [place] [address] Referral ID Status Reason Start Date Expiration Date Visits Requested Visits Authorized [id number] Pending Review Auto-Generat ed Referral 3 06/11/2024 1 1 * Outpatient Procedure (Routine) - Pending Review Specialty Diagnoses / Procedures Referred By Contac t Referred To Contact [facility] Diagnoses SOB (shortness of breath) Wheezing Procedures SPIROMETRY - BASELINE AND POST DILATOR BRNCDILAT RSPSE SPMTRY PRE&POST-BRNCDILAT ADMN Eliceo Stafford APRN.CNP [address] [place] [address] Res[facility] [place] [facility] [place] [address] Referral ID Status Reason Start Date Expiration Date Visits Requested Visits Authorized [id number] Pending Review Auto-Generat ed Referral 3 07/11/2024 1 1 [facility] Summary Purpose Family History No Family History Records Found Advance Directives No Advanced Directives Records Found Additional Source Comments Source Comments (unrecognize d section and content) In the event this informatio n is protected by the Federal Confidentiality of Alcohol and Drug Abuse Patient Records regulations: The Federal rules restrict any use of the information to criminally investigate or prosecute any alcohol or drug abuse patient.[facility] the event this information is protected by the Federal Confidentiality of Alcohol and Drug Abuse Patient Records regulations: The Federal rules restrict any use of the information to criminally investigate or prosecute any alcohol or drug abuse patient.[facility] the event this information is protected by the Federal Confidentiality of Alcohol and Drug Abuse Patient Records regulations: The Federal rules restrict any use of the information to criminally investigate or prosecute any alcohol or drug abuse patient.[facility] the event this information is protected by the Federal Confidentiality of Alcohol and Drug Abuse Patient Records regulations: The Federal rules restrict any use of the information to criminally investigate or prosecute any alcohol or drug abuse patient.[facility] the event this information is protected by the Federal Confidentiality of Alcohol and Drug Abuse Patient Records regulations: The Federal rules restrict any use of the information to criminally investigate or prosecute any alcohol or drug abuse patient.[facility] the event this information is protected by the Federal Confidentiality of Alcohol and Drug Abuse Patient Records regulations: The Federal rules restrict any use of the information to criminally investigate or prosecute any alcohol or drug abuse patient.[facility] the event this information is protected by the Federal Confidentiality of Alcohol and Drug Abuse Patient Records regulations: The Federal rules restrict any use of the information to criminally investigate or prosecute any alcohol or drug abuse patient.[facility] the event this information is protected by the Federal Confidentiality of Alcohol and Drug Abuse Patient Records regulations: The Federal rules restrict any use of the information to criminally investigate or prosecute any alcohol or drug abuse patient.[facility] the event this information is protected by the Federal Confidentiality of Alcohol and Drug Abuse Patient Records regulations: The Federal rules restrict any use of the information to criminally investigate or prosecute any alcohol or drug abuse patient.[facility] the event this information is protected by the Federal Confidentiality of Alcohol and Drug Abuse Patient Records regulations: The Federal rules restrict any use of the information to criminally investigate or prosecute any alcohol or drug abuse patient.[facility] the event this information is protected by the Federal Confidentiality of Alcohol and Drug Abuse Patient Records regulations: The Federal rules restrict any use of the information to criminally investigate or prosecute any alcohol or drug abuse patient.[facility] Reason for Visit (unrecogniz ed section and content) Reason Onset Date Comments Refill Request 07/19/2022 Reason Comments 6 Month Exam Reason Comments Chest Pain Reason Comments Shortness of Breath X 3 days Cough X 3 days Wheezing Specialty Diagnoses / Procedures Referred By Contac t Referred To Contact Family Medicine / FAMILY MEDICINE Diagnoses Examination per NOC same day appt for SOB and cough Procedures OFFICE/OUTPATIENT ESTABLISHED MOD MDM 30-39 MIN 4C SAME DAY Self Anuradha Scott MD [address] [place] [address] Referral ID Status Reason Start Date Expiration Date Visits Re quested Visits Authorized [id number] Closed 05/01/2023 07/23/2023 1 1 Reason Comments Patient update on shortness of breath Reason Comments Breathing Problem X1 month, seen in t in office and ER twice since then. Reason Comments Medication Problem Care Teams (unrecognized sec tion and content) [employer] Relationship Specialty Start Date End Date Divya Lima MD [address] [place], [place] [id number] PCP - General Family Medicine 09/20/14 [employer] Relationship Specialty Start Date End Date Divya Lima MD [address] [place], [place] [id number] PCP - General Family Medicine 09/20/14 [employer] Relationship Specialty Start Date End Date Divya Lima MD [address] [place], [place] [id number] PCP - General Family Medicine 09/20/14 [employer] Relationship Specialty Start Date End Date Divya Lima MD [address] [place], [place] [id number] PCP - General Family Medicine 09/20/14 [employer] Relationship Specialty Start Date End Date Divya Lima MD [address] [place], [place] [id number] PCP - General Family Medicine 09/20/14 [employer] Relationship Specialty Start Date End Date Divya Lima MD [address] [place] [address] PCP - [facility] 09/20/14 [employer] Relationship Specialty Start Date End Date Divya Lima MD [address] [facility], [place] [id number] PCP - [facility] 09/20/14 [employer] Relationship Specialty Start Date End Date Divya Lima MD [address] [place] [address] PCP - [facility] 09/20/14 [employer] Relationship Specialty Start Date End Date Divya Lima MD [address] [place] [address] PCP - [facility] 09/20/14 [employer] Relationship Specialty Start Date End Date Divya Lima MD [address] [facility], [place] [id number] PCP - [facility] 09/20/14 (unrecognized sect ion and content) No Status Records Found INFORMATION SOURCE (unrecogn ized section and content) FOR RECORDS PERTAINING TO PATIENTS WHO ARE OR HAVE BEEN ENROLLED IN A CHEMICAL DEPENDENCY/SUBSTANCEABUSE PROGRAM, SOME INFORMATION MAY BE OMITTED. This clinical summary was aggregated from multiple sources. Caution should be exercised in using it in the provision of clinical care. This summary normalizes information from multiple sources, and as a consequence, information in this document may materially change the coding, format and clinical context of patient data. In addition, data may be omitted in some cases. CLINICAL DECISIONS SHOULD BE BASED ON THE PRIMARY CLINICAL RECORDS. [employer] [email or web address] provides no warranty or guarantee of the accuracy or completeness of information in this document.
== END 2023-07-18 22:38 | disposition home or self-care (01) ==
PROVIDERS: Emergency Provider Emergency Medicine; PCP Family Medicine; Visit Provider Emergency Medicine
DX: R06.2 Wheezing (principal); R06.00 Dyspnea, unspecified
CPT/HCPCS: 80048; 84484; 85025; 93005; 94640; 96374; 99283; A4216